=== PATIENT | female | born 1980 | race Caucasian/White ===

== ENCOUNTER 2019-02-19 07:32 | Observation (INO) | payer OTHER ==
[2019-02-19] MEDS ORDERED: NITROGLYCERIN OINT 1 INCH/GM PACKET TOPICAL STA (07:54)
[2019-02-19] MEDS ORDERED: ASPIRIN 81 MG PO STA (07:54)
--- NOTE | 2019-02-19 07:56 | ED ---
General Adult HPI - General Chief complaint: Chest Pain Stated complaint: High BP & chest pain Time Seen by Provider: 02/19/19 07:38 Source: patient, family, RN notes reviewed Mode of arrival: ambulatory Limitations: no limitations - History of Present Illness Initial comments: Patient is a pleasant 38-year-old female presenting to the emergency Department with chest discomfort. Symptoms started a couple of days ago. Patient has noticed her blood pressure has been high ascending at home. Blood pressure today was 180/88. Patient has been off her labetalol for the past year secondary to insurance reasons. Patient tried to call the doctor's office however there is no longer a doctor there. Patient states chest discomfort feels like pressure. Patient has diabetes and blood sugar has been running around 250. Patient does have some associated dyspnea. No radiation. Patient had mild nausea this morning. No diaphoresis. Patient has been under some increased stress recently. Patient does also have history of asthma with somewhat similar symptoms. - Related Data Home Medications Medication Instructions Recorded Confirmed Insulin Glargine [Lantus] 80 unit SQ HS 01/28/15 11/22/18 Insulin Glulisine [Apidra] See Protocol SQ AC-TID 06/23/15 11/22/18 Aspirin EC [Ecotrin Low Dose] 81 mg PO DAILY 06/11/16 11/22/18 Garlic 1 tab PO DAILY 11/22/18 11/22/18 Shital Fe 1.5-30 1 tab PO DAILY@1815 11/22/18 11/22/18 Previous Rx's Medication Instructions Recorded Benzonatate [Tessalon Perles] 200 mg PO TID PRN #20 capsule 11/22/18 Famotidine [Pepcid] 20 mg PO DAILY #20 tablet 11/22/18 Ibuprofen [Motrin] 600 mg PO Q6HR PRN #20 tab 11/22/18 predniSONE [Deltasone] 40 mg PO DAILY 5 Days #10 tablet 11/22/18 Allergies Allergy/AdvReac Type Severity Reaction Status Date / Time azithromycin Allergy Unknown Verified 02/19/19 07:37 brompheniramine maleate Allergy Unknown Verified 02/19/19 07:37 [From Dimetapp Cold-Allergy (PE)] cephalexin [From Keflex] Allergy Unknown Verified 02/19/19 07:37 Penicillins Allergy Unknown Verified 02/19/19 07:37 phenylephrine HCl Allergy Unknown Verified 11/22/18 20:02 [From Dimetapp Cold-Allergy (PE)] sulfamethoxazole Allergy Unknown Verified 02/19/19 07:37 [From Septra] tetracycline Allergy Unknown Verified 02/19/19 07:37 theophylline anhydrous Allergy Unknown Verified 02/19/19 07:37 [From Wenceslao-Dur] trimethoprim [From ] Allergy Unknown Verified 02/19/19 07:37 Review of Systems ROS Statement: Those systems with pertinent positive or pertinent negative responses have been documented in the HPI. ROS Other: All systems not noted in ROS Statement are negative. Constitutional: Denies: fever Eyes: Denies: eye pain ENT: Denies: ear pain Respiratory: Reports: dyspnea Cardiovascular: Reports: chest pain Endocrine: Denies: fatigue Gastrointestinal: Denies: abdominal pain Genitourinary: Denies: dysuria Musculoskeletal: Denies: back pain Skin: Denies: rash Neurological: Denies: weakness Past Medical History Past Medical History: Asthma, Diabetes Mellitus, Hypertension History of Any Multi-Drug Resistant Organisms: None Reported Past Surgical History: Section Past Psychological History: No Psychological Hx Reported Smoking Status: Never smoker Past Alcohol Use History: None Reported Past Drug Use History: None Reported General Exam Limitations: no limitations General appearance: alert, in no apparent distress Head exam: Present: normocephalic Eye exam: Present: normal appearance, PERRL ENT exam: Present: normal oropharynx Neck exam: Present: normal inspection Respiratory exam: Present: normal lung sounds bilaterally. Absent: chest wall tenderness Cardiovascular Exam: Present: regular rate, normal rhythm Expanded Peripheral pulses: 2+: Radial (R), Radial (L), Dorsalis Pedis (R), Dorsalis Pedis (L) GI/Abdominal exam: Present: soft. Absent: distended, tenderness Extremities exam: Present: normal inspection. Absent: pedal edema, calf tenderness Neurological exam: Present: alert Psychiatric exam: Present: normal affect, normal mood Skin exam: Present: normal color Course Vital Signs 02/19/19 02/19/19 07:34 08:33 Temperature 98 F Pulse Rate 94 86 Respiratory 20 16 Rate Blood Pressure 199/103 153/78 O2 Sat by Pulse 100 98 Oximetry EKG Findings - EKG Comments: EKG Findings:: No sinus rhythm 81. KS 186. QRS 82. QT 370. QTc 429. Left axis. Normal QRS. No acute ST change. Medical Decision Making - Medical Decision Making Patient reevaluated and resting comfortably in bed. Patient and family updated on results and plan. [facility] has been paged for hospital admission. D-dimer did come back somewhat elevated and CT A chest has been ordered. - Lab Data Result diagrams: 02/19/19 08:20 02/19/19 08:20 Lab Results 02/19/19 02/19/19 02/19/19 Range/Units 08:20 08:20 08:20 WBC 6.6 (3.8-10.6) k/uL RBC 5.60 H (3.80-5.40) m/uL Hgb 15.1 (11.4-16.0) gm/dL Hct 44.3 (34.0-46.0) % MCV 79.2 L (80.0-100.0) fL MCH 26.9 (25.0-35.0) pg MCHC 34.0 (31.0-37.0) g/dL RDW 14.3 (11.5-15.5) % Plt Count 214 (150-450) k/uL Neutrophils % 61 % Lymphocytes % 31 % Monocytes % 4 % Eosinophils % 3 % Basophils % 1 % Neutrophils # 4.0 (1.3-7.7) k/uL Lymphocytes # 2.0 (1.0-4.8) k/uL Monocytes # 0.3 (0-1.0) k/uL Eosinophils # 0.2 (0-0.7) k/uL Basophils # 0.0 (0-0.2) k/uL PT 9.4 (9.0-12.0) sec INR 0.9 (<1.2) APTT 21.1 L (22.0-30.0) sec D-Dimer 0.82 H (<0.60) mg/L FEU Sodium 136 L (137-145) mmol/L Potassium 4.1 (3.5-5.1) mmol/L Chloride 104 (98-107) mmol/L Carbon Dioxide 24 (22-30) mmol/L Anion Gap 8 mmol/L BUN 13 (7-17) mg/dL Creatinine 0.55 (0.52-1.04) mg/dL Est GFR (CKD-EPI)AfAm >90 (>60 ml/min/1.73 sqM) Est GFR (CKD-EPI)NonAf >90 (>60 ml/min/1.73 sqM) Glucose 198 H (74-99) mg/dL Calcium 9.3 (8.4-10.2) mg/dL Magnesium 1.5 L (1.6-2.3) mg/dL Total Bilirubin 0.3 (0.2-1.3) mg/dL AST 21 (14-36) U/L ALT 20 (9-52) U/L Alkaline Phosphatase 74 (38-126) U/L Troponin I (0.000-0.034) ng/mL NT-Pro-B Natriuret Pep pg/mL Total Protein 6.5 (6.3-8.2) g/dL Albumin 3.5 (3.5-5.0) g/dL Amylase 35 (30-110) U/L Lipase 80 (23-300) U/L 02/19/19 02/19/19 Range/Units 08:20 08:20 WBC (3.8-10.6) k/uL RBC (3.80-5.40) m/uL Hgb (11.4-16.0) gm/dL Hct (34.0-46.0) % MCV (80.0-100.0) fL MCH (25.0-35.0) pg MCHC (31.0-37.0) g/dL RDW (11.5-15.5) % Plt Count (150-450) k/uL Neutrophils % % Lymphocytes % % Monocytes % % Eosinophils % % Basophils % % Neutrophils # (1.3-7.7) k/uL Lymphocytes # (1.0-4.8) k/uL Monocytes # (0-1.0) k/uL Eosinophils # (0-0.7) k/uL Basophils # (0-0.2) k/uL PT (9.0-12.0) sec INR (<1.2) APTT (22.0-30.0) sec D-Dimer (<0.60) mg/L FEU Sodium (137-145) mmol/L Potassium (3.5-5.1) mmol/L Chloride (98-107) mmol/L Carbon Dioxide (22-30) mmol/L Anion Gap mmol/L BUN (7-17) mg/dL Creatinine (0.52-1.04) mg/dL Est GFR (CKD-EPI)AfAm (>60 ml/min/1.73 sqM) Est GFR (CKD-EPI)NonAf (>60 ml/min/1.73 sqM) Glucose (74-99) mg/dL Calcium (8.4-10.2) mg/dL Magnesium (1.6-2.3) mg/dL Total Bilirubin (0.2-1.3) mg/dL AST (14-36) U/L ALT (9-52) U/L Alkaline Phosphatase (38-126) U/L Troponin I <0.012 (0.000-0.034) ng/mL NT-Pro-B Natriuret Pep 40 pg/mL Total Protein (6.3-8.2) g/dL Albumin (3.5-5.0) g/dL Amylase (30-110) U/L Lipase (23-300) U/L - Radiology Data Radiology results: image reviewed (Chest x-ray reveals no acute process) Disposition Clinical Impression: Chest pain Disposition: ADMITTED IP TO THIS HOSP Is patient prescribed a controlled substance at d/c from ED?: No Referrals: None,Stated [Primary Care Provider] - 1-2 days Decision Time: 09:26
[2019-02-19 08:31] LABS: Basophils % (A) 1 %; Eosinophils # (A) 0.2 k/uL (0-0.7); Eosinophils % (A) 3 %; HCT 44.3 % (34.0-46.0); HGB 15.1 gm/dL (11.4-16.0); Lymphocytes % (A) 31 %; MCH 26.9 pg (25.0-35.0); MCV 79.2 fL (80.0-100.0); Mean Platelet Volume 7.8; Monocytes # (A) 0.3 k/uL (0-1.0); Monocytes % (A) 4 %; Neutrophils % (A) 61 %; Platelet Count 214 k/uL (150-450); RDW 14.3 % (11.5-15.5); WBC 6.6 k/uL (3.8-10.6)
[2019-02-19 08:43] LABS: ALT 20 U/L (9-52); AST 21 U/L (14-36); African American GFR (CKD) >90 (>60 ml/min/1.73 sqM); Albumin 3.5 g/dL (3.5-5.0); Alkaline Phosphatase 74 U/L (38-126); Amylase 35 U/L (30-110); Anion Gap 8 mmol/L; Blood Urea Nitrogen 13 mg/dL (7-17); Calcium 9.3 mg/dL (8.4-10.2); Carbon Dioxide 24 mmol/L (22-30); Chloride 104 mmol/L (98-107); Glucose 198 mg/dL (74-99); Lipase 80 U/L (23-300); Magnesium 1.5 mg/dL (1.6-2.3); Potassium 4.1 mmol/L (3.5-5.1); Sodium 136 mmol/L (137-145); Total Bilirubin 0.3 mg/dL (0.2-1.3); Total Protein 6.5 g/dL (6.3-8.2)
[2019-02-19 08:50] LABS: INR 0.9 (<1.2); Prothrombin Time 9.4 sec (9.0-12.0)
--- NOTE | 2019-02-19 08:53 | XR ---
EXAMINATION TYPE: XR chest 2V DATE OF EXAM: 02/19/2019 COMPARISON: Prior chest x-ray 11/22/2018 HISTORY: Chest pain, hypertension TECHNIQUE: Frontal and lateral views of the chest are obtained. FINDINGS: There is no focal air space opacity, pleural effusion, or pneumothorax seen. The cardiac silhouette size is within normal limits. The osseous structures are intact. There are overlying car diac leads. IMPRESSION: No acute cardiopulmonary process.
[2019-02-19] MEDS ORDERED: MAGNESIUM OXIDE 400 MG TAB PO STA (09:09)
[2019-02-19 09:22] LABS: D-Dimer 0.82 mg/L FEU (<0.60); Partial Thromboplastin Time 21.1 sec (22.0-30.0)
[2019-02-19] MEDS ORDERED: NITROGLYCERIN SL TABS 0.4 MG TAB SUBLINGUAL PRN (09:27)
--- NOTE | 2019-02-19 10:04 | CT ---
EXAMINATION TYPE: CT angio chest DATE OF EXAM: 02/19/2019 COMPARISON: Chest x-ray same date and prior chest CT 08/10/2011 HISTORY: Elevated BP, chest pain, SOB CT DLP: 1006.7 mGycm Automated exposure control for dose reduction was used. CONTRAST: CTA scan of the thorax is performed with IV Contrast, patient injected with 53 mL of Isovue 370, pulm onary embolism protocol. MIP images are created and reviewed. 3D reconstructed images are created o n an independent workstation and reviewed. FINDINGS: LUNGS: The lungs are grossly clear, there is no concerning parenchymal mass or nodule identified. T here is no pleural effusion or pneumothorax seen. The tracheobronchial tree is patent. AORTA: No additional significant abnormality is seen. MEDIASTINUM: There is satisfactory enhancement of the pulmonary artery and its branches, there is no CT evidence for pulmonary embolism. There are no greater than 1 cm hilar or mediastinal lymph nodes. No pericardial effusion is seen. OTHER: Liver shows low attenuation likely due to hepatic steatosis. IMPRESSION: NO EVIDENT PULMONARY EMBOLUS.
[2019-02-19 10:07] VITALS: BMI 52.4
[2019-02-19 11:43] LABS: Glucose,Whole Blood 154 mg/dL (75-99)
[2019-02-19] MEDS ORDERED: NITROGLYCERIN OINT 1 INCH/GM PACKET TOPICAL SCH (12:00)
[2019-02-19] MEDS: PANTOPRAZOLE 40 MG TABLET PO SCH (12:44)
--- NOTE | 2019-02-19 13:08 | P.CRDCN ---
History of Present Illness History of present illness: This is a pleasant 38-year-old female past medical history significant for hypertension, diabetes mellitus, asthma and morbid obesity. 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 We have been asked to see her in consultation for chest pain. She states for the previous couple of days she has noticed a tightness in her chest associated with breathing. She feels she's been mildly short of breath and possibly wheezing at home. She has been taking breathing treatments with no real relief of her symptoms. The tightness in her chest is worse when she takes in a deep breath. She also describes a burning sensation in the epigastric region that has been off-and-on for the previous few weeks. The discomfort is reproducible on palpation. She denies palpitations, nausea, vomiting or diaphoresis. She also has a diagnosis of hypertension however has not been taking her prescribed labetalol for the last year since she lost her medical insurance. She states she initially was started on labetalol when she was and had preeclampsia. She is seen and examined resting comfortably in bed in no acute distress. EKG reveals sinus mechanism with no acute ST or T-wave abnormalities noted. Chest xray negative for an acute cardiopulmonary process. CTA chest negative for PE. Laboratory data reviewed, WBC 6.6, hgb 15.1, plt 214, d-dimer 0.82, sodium 136, potassium 4.1, creatinine 0.55, magnesium 1.5, proBNP 40, cardiac enzymes negative x1. Current cardiac medications include aspirin 81 mg daily. At the time of my exam: CONSTITUTIONAL: Denies fever. Denies chills. EYES: Denies blurred vision. Denies vision changes. Denies eye pain. EARS, NOSE, MOUTH & THROAT: Denies headache. Denies sore throat. Denies ear pain. CARDIOVASCULAR: Denies chest pain. Denies shortness of breath. Denies orthopnea. Denies PND. Denies palpitations. RESPIRATORY: Denies cough. GASTROINTESTINAL: Denies abdominal pain. Denies diarrhea. Denies constipation. Denies nausea. Denies vomiting. MUSCULOSKELETAL: Denies myalgias. INTEGUMENTARY: Denies pruitis. Denies rash. NEUROLOGIC: Denies numbness. Denies tingling. Denies weakness. PSYCHIATRIC: Denies anxiety. Denies depression. ENDOCRINE: Denies fatigue. Denies weight change. Denies polydipsia. Denies polyurina. GENITOURINARY: Denies burning, hematuria or urgency with micturation. HEMATOLOGIC: Denies history of anemia. Denies bleeding. Blood pressure 131/84 heart rate 93 afebrile maintaining oxygen saturation on room air GENERAL: This is a 38-year-old female in no apparent distress at the time of my examination. Morbidly obese. HEENT: Head is atraumatic, normocephalic. Pupils are equal, round. Sclerae anicteric. Conjunctivae are clear. Mucous membranes of the mouth are moist. Neck is supple. There is no jugular venous distention. No carotid bruit is heard. LUNGS: Clear to auscultation no wheezes, rales or rhonchi. No chest wall tenderness is noted on palpation or with deep breathing. HEART: Regular rate and rhythm without murmurs, rubs or gallops. S1 and S2 heard. ABDOMEN: Soft, nontender. Bowel sounds are heard. No organomegaly noted. EXTREMITIES: No evidence of peripheral edema and no calf tenderness noted. VASCULAR: Radial and dorsalis pedis pulses palpated, no evidence of clubbing. NEUROLOGIC: Patient is awake, alert and oriented x3. ASSESSMENT Chest pain, atypical for angina with elements of worsening with deep inspiration. Epigastric burning, worse on palpation Hypertension, uncontrolled Diabetes mellitus Asthma Morbid obesity, BMI 52 Family history of premature coronary artery disease with mother having stent placement in her 50s PLAN Chest discomfort is very atypical for angina with pleuritic features most likely related to underlying exacerbation of asthma or upper respiratory type illness. Initiate on lisinopril 5 mg daily along with atorvastatin 40 mg daily for cardioprotective purposes secondary to diabetes mellitus. Obtain 2-D echocardiogram and Doppler study to assess cardiac structure and function. Ongoing medical management. Follow-up with Dr. Arias as an outpatient for outpatient stress testing once u pper respiratory illness has resolved. Lifestyle modifications are recommended for weight loss to include diet and exercise. Thank you kindly for this consultation. Nurse Practitioner note has been reviewed, I agree with a documented findings and plan of care. Patient was seen and examined. Past Medical History Past Medical History: Asthma, Diabetes Mellitus, Hypertension Additional Past Medical History / Comment(s): IDDM type II History of Any Multi-Drug Resistant Organisms: None Reported Past Surgical History: Section Additional Past Surgical History / Comment(s): x 3 Past Anesthesia/Blood Transfusion Reactions: No Reported Reaction Smoking Status: Never smoker - Past Family History Father History Unknown: Yes Mother Family Medical History: Myocardial Infarction (CT) Additional Family Medical History / Comment(s): Mother had a CT at the age of 52 yrs. She has Grave's disease Medications and Allergies Home Medications Medication Instructions Recorded Confirmed Type Aspirin EC [Ecotrin Low Dose] 81 mg PO DAILY 06/11/16 02/19/19 History Shital Fe 1.5-30 1 tab PO DAILY@1815 11/22/18 02/19/19 History Famotidine [Pepcid] 20 mg PO HS 02/19/19 02/19/19 History INSULIN LISPRO (humaLOG) [humaLOG] 40 - 60 units SQ AC-TID 02/19/19 02/19/19 History Insulin Detemir (Levemir) [Levemir] 80 unit SQ HS 02/19/19 02/19/19 History Allergies Allergy/AdvReac Type Severity Reaction Status Date / Time azithromycin Allergy Unknown Verified 02/19/19 09:29 brompheniramine maleate Allergy Unknown Verified 02/19/19 09:29 [From Dimetapp Cold-Allergy (PE)] cephalexin [From Keflex] Allergy Unknown Verified 02/19/19 09:29 Penicillins Allergy Unknown Verified 02/19/19 09:29 phenylephrine HCl Allergy Unknown Verified 02/19/19 09:29 [From Dimetapp Cold-Allergy (PE)] sulfamethoxazole Allergy Unknown Verified 02/19/19 09:29 [From Septra] tetracycline Allergy Unknown Verified 02/19/19 09:29 theophylline anhydrous Allergy Unknown Verified 02/19/19 09:29 [From Wenceslao-Dur] trimethoprim [From Septra] Allergy Unknown Verified 02/19/19 09:29 Physical Exam Vitals: Vital Signs Temp Pulse Pulse Resp BP BP Pulse Ox 02/19/19 10:33 98.2 F 93 18 131/84 97 02/19/19 09:59 98.5 F 88 16 151/84 96 02/19/19 08:33 86 16 153/78 98 02/19/19 07:34 98 F 94 20 199/103 100 Intake and Output 02/18/19 02/19/19 02/19/19 22:59 06:59 14:59 Other: Weight 147.418 kg Results 02/19/19 08:20 02/19/19 08:20 Cardiac Enzymes 02/19/19 02/19/19 Range/Units 08:20 08:20 AST 21 (14-36) U/L Troponin I <0.012 (0.000-0.034) ng/mL Coagulation 02/19/19 Range/Units 08:20 PT 9.4 (9.0-12.0) sec APTT 21.1 L (22.0-30.0) sec CBC 02/19/19 Range/Units 08:20 WBC 6.6 (3.8-10.6) k/uL RBC 5.60 H (3.80-5.40) m/uL Hgb 15.1 (11.4-16.0) gm/dL Hct 44.3 (34.0-46.0) % Plt Count 214 (150-450) k/uL Comprehensive Metabolic Panel 02/19/19 Range/Units 08:20 Sodium 136 L (137-145) mmol/L Potassium 4.1 (3.5-5.1) mmol/L Chloride 104 (98-107) mmol/L Carbon Dioxide 24 (22-30) mmol/L BUN 13 (7-17) mg/dL Creatinine 0.55 (0.52-1.04) mg/dL Glucose 198 H (74-99) mg/dL Calcium 9.3 (8.4-10.2) mg/dL AST 21 (14-36) U/L ALT 20 (9-52) U/L Alkaline Phosphatase 74 (38-126) U/L Total Protein 6.5 (6.3-8.2) g/dL Albumin 3.5 (3.5-5.0) g/dL Current Medications Generic Name Dose Route Start Last Admin Trade Name Freq PRN Reason Stop Dose Admin Aspirin 325 mg 02/20/19 09:00 Aspirin PO DAILY JANETH Nitroglycerin 1 inch 02/19/19 12:00 02/19/19 12:04 Nitro-Bid Oint TOPICAL Not Given Q6HR JANETH Nitroglycerin 0.4 mg 02/19/19 09:27 Nitrostat SUBLINGUAL Q5M PRN Chest Pain Sodium Chloride 10 ml 02/19/19 21:00 Saline Flush IV BID JANETH Intake and Output 06/20/19 06/21/19 06/21/19 22:59 06:59 14:59 Other: Weight 147.418 kg Patient Weight 02/20/19 06:59 Weight 147.418 kg 02/19/19 08:20 02/19/19 08:20
[2019-02-19 13:46] LABS: Cholesterol 212 mg/dL (<200); HDL Cholesterol 44 mg/dL (40-60); LDL Cholesterol,Calculated 124 mg/dL (0-99); Triglycerides 222 mg/dL (<150)
[2019-02-19] MEDS: LISINOPRIL 5 MG TAB PO SCH (14:17)
[2019-02-19] MEDS: ATORVASTATIN 40 MG TAB PO SCH (14:17)
[2019-02-19 16:58] LABS: Glucose,Whole Blood 221 mg/dL (75-99)
[2019-02-19] MEDS ORDERED: ALBUTEROL NEBULIZED 2.5 MG/3 ML INHALATION PRN (17:10)
--- NOTE | 2019-02-19 17:12 | P.HPIM ---
History of Present Illness H&P Date: 02/19/19 Chief Complaint: Chest pain 30-year-old female with PMH of diabetes mellitus, hypertension presents to the ED for chest tightness and shortness of breath. Patient reports that the chest pain started a few days ago. Patient describes the pain as pressure-like in sensation. She is unable to describe severity level due to it not being a pain. Patient states that she thought that this was an asthma attack and she tried to use an albuterol inhaler and a nebulizer treatment which improved her symptoms. Over the next few days she got repeat episodes of chest pressure, which prompted her to come to the ED. Patient also reports wheezing with her breathing. Patient states that the tightness in her chest is worse with deep inhalation. Patient also complains of epigastric discomfort over the last couple of days. Of note, patient has not been treating her hypertension, labetalol which was prescribed to her after her last due to preeclampsia as she has lost her medical insurance. She denies any headache, lower extremity edema, nausea, vomiting, fever, cough, palpitations, changes in urination or bowel habits. No changes in appetite or weight. No dizziness, numbness/weakness/tingling of the extremities. In the ED, vital signs are stable except for a BP of 199/103. CBC was unremarkable. Coagulation panel was negative. D-dimer slightly elevated. CMP was negative. Initial troponin was less than 0.012, EKG showing normal sinus rhythm. CT of the chest ruled out PE. Chest x-ray was negative. Lipid panel shows an elevated triglyceride of 222, total cholesterol 212 and LDL 124. Patient is admitted for chest pain, rule out acute coronary syndrome. Review of Systems Pertinent positives and negatives as discussed in HPI, a complete review of systems was performed and all other systems are negative. Past Medical History Past Medical History: Asthma, Diabetes Mellitus, Hypertension Additional Past Medical History / Comment(s): IDDM type II History of Any Multi-Drug Resistant Organisms: None Reported Past Surgical History: Section Additional Past Surgical History / Comment(s): x 3 Past Anesthesia/Blood Transfusion Reactions: No Reported Reaction Smoking Status: Never smoker - Past Family History Father History Unknown: Yes Mother Family Medical History: Myocardial Infarction (MO) Additional Family Medical History / Comment(s): Mother had a MO at the age of 52 yrs. She has Grave's disease Medications and Allergies Home Medications Medication Instructions Recorded Confirmed Type Aspirin EC [Ecotrin Low Dose] 81 mg PO DAILY 06/11/16 02/19/19 History Shital Fe 1.5-30 1 tab PO DAILY@1815 11/22/18 02/19/19 History Famotidine [Pepcid] 20 mg PO HS 02/19/19 02/19/19 History INSULIN LISPRO (humaLOG) [humaLOG] 40 - 60 units SQ AC-TID 02/19/19 02/19/19 History Insulin Detemir (Levemir) [Levemir] 80 unit SQ HS 02/19/19 02/19/19 History Allergies Allergy/AdvReac Type Severity Reaction Status Date / Time azithromycin Allergy Unknown Verified 02/19/19 09:29 brompheniramine maleate Allergy Unknown Verified 02/19/19 09:29 [From Dimetapp Cold-Allergy (PE)] cephalexin [From Keflex] Allergy Unknown Verified 02/19/19 09:29 Penicillins Allergy Unknown Verified 02/19/19 09:29 phenylephrine HCl Allergy Unknown Verified 02/19/19 09:29 [From Dimetapp Cold-Allergy (PE)] sulfamethoxazole Allergy Unknown Verified 02/19/19 09:29 [From Septra] tetracycline Allergy Unknown Verified 02/19/19 09:29 theophylline anhydrous Allergy Unknown Verified 02/19/19 09:29 [From [place]-Dur] trimethoprim [From ] Allergy Unknown Verified 02/19/19 09:29 Physical Exam Vitals: Vital Signs Temp Pulse Pulse Resp BP BP Pulse Ox 02/19/19 15:33 98.6 F 94 18 101/66 96 02/19/19 10:33 98.2 F 93 18 131/84 97 02/19/19 09:59 98.5 F 88 16 151/84 96 02/19/19 08:33 86 16 153/78 98 02/19/19 07:34 98 F 94 20 199/103 100 Intake and Output 02/19/19 02/19/19 02/19/19 06:59 14:59 22:59 Other: Weight 147.418 kg General: [non toxic], [no distress], [appears at stated age], [morbid obesity] Derm: [warm], [dry] Head: [atraumatic], [normocephalic], [symmetric] Eyes: [EOMI], [no lid lag], [anicteric sclera] Mouth: [no lip lesion], [mucus membranes moist] Cardiovascular: [S1S2 reg], [no murmur], [positive DP pulse bilateral], Lungs: [Decreased breath sounds bilateral], [no rhonchi, no rales] , [no accessory muscle use] Abdominal: [soft], [ nontender to palpation], [no guarding], [no appreciable organomegaly] Ext: [no gross muscle atrophy], [no edema], [no contractures] Neuro: [no focal neuro deficits] Psych: [Alert], [oriented], [appropriate affect] Results CBC & Chem 7: 02/19/19 08:20 02/19/19 08:20 Labs: Abnormal Lab Results - Last 24 Hours (Table) 02/19/19 02/19/19 02/19/19 Range/Units 08:20 08:20 08:20 RBC 5.60 H (3.80-5.40) m/uL MCV 79.2 L (80.0-100.0) fL APTT 21.1 L (22.0-30.0) sec D-Dimer 0.82 H (<0.60) mg/L FEU Sodium 136 L (137-145) mmol/L Glucose 198 H (74-99) mg/dL POC Glucose (mg/dL) (75-99) mg/dL Magnesium 1.5 L (1.6-2.3) mg/dL Triglycerides (<150) mg/dL Cholesterol (<200) mg/dL LDL Cholesterol, Calc (0-99) mg/dL 02/19/19 02/19/19 Range/Units 08:24 11:41 RBC (3.80-5.40) m/uL MCV (80.0-100.0) fL APTT (22.0-30.0) sec D-Dimer (<0.60) mg/L FEU Sodium (137-145) mmol/L Glucose (74-99) mg/dL POC Glucose (mg/dL) 154 H (75-99) mg/dL Magnesium (1.6-2.3) mg/dL Triglycerides 222 H (<150) mg/dL Cholesterol 212 H (<200) mg/dL LDL Cholesterol, Calc 124 H (0-99) mg/dL Thrombosis Risk Factor Assmnt - Choose All That Apply Any of the Below Risk Factors Present?: Yes Each Factor Represents 1 point: Obesity (BMI >25) Other Risk Factors: No Other congenital or acquired thrombophilia - If yes, enter type in comment: No Thrombosis Risk Factor Assessment Total Risk Factor Score: 1 Thrombosis Risk Factor Assessment Level: Low Risk Assessment and Plan Assessment: Assessment and Plan Chest pain Asthma Hypertension Diabetes mellitus Hyperlipidemia Chest tightness is likely secondary to asthma. Patient does have some epigastric discomfort, likely related to GERD or gastritis. Troponin was less than 0.0122 with EKG showing normal sinus rhythm. Chest x-ray is negative. D- dimer elevated but CTA chest rules out PE. Plans: ACS is ruled out. Cardiology is consulted, recommends echocardiogram. Telemetry monitoring. Ensure adequate pain management. Continue aspirin and Lipitor. Protonix for possible GERD. Stable. Plans: Albuterol nebulizer 4 times a day as needed for shortness of breath or wheezing. BP 101/66. Plans: Continue lisinopril. Monitor vitals, adjust medications as necessary. [id number] glucose 221. Plans: Insulin sliding scale. Continue Lantus 40 units at bedtime. Regular Accu-Cheks. Hypoglycemic precautions. Diabetic diet. Lipitor shows elevated triglycerides 222, total cholesterol 212, LDL 124. Plans: Continue Lipitor. Patient admitted for chest pain, rule out acute coronary syndrome. ACS is ruled out. Cardiology is consulted, recommends echocardiogram. The read of echocardiogram is pending. Likely DC tomorrow morning.
[2019-02-19] MEDS: INSULIN ASPART (NovoLOG) 100 UNIT/ML VIAL SQ SCH (17:44)
[2019-02-19] MEDS: ACETAMINOPHEN TAB 325 MG TAB PO PRN (18:26)
--- NOTE | 2019-02-19 19:20 | ECHOF ---
Referral Reason:cp MEASUREMENTS -------- HEIGHT: 167.6 cm WEIGHT: 147.4 kg BP: 131/84 IVSd: 1.1 cm (0.6 - 1.1) LVIDd: 4.3 cm (3.9 - 5.3) LVPWd: 1.1 cm (0.6 - 1.1) IVSs: 1.4 cm LVIDs: 2.9 cm LVPWs: 1.4 cm LA Diam: 3.5 cm (2.7 - 3.8) LAESV Index (A-L): 19.63 ml/m MV E Paul: 0.69 m/s MV DecT: 225 ms MV A Paul: 0.92 m/s MV E/A Ratio: 0.74 AV maxP.61 mmHg AV meanP.40 mmHg FINDINGS -------- Sinus rhythm. This was a technically adequate study. LV size, wall thickness and systolic function are normal, with an EF greater than 55%. The right ventricle is normal in size. Normal LA size by volume 22+/-6 ml/m2. The right atrial size is normal. 5.0mg of Lumason was utilized for enhancement of images The aortic valve is trileaflet, and appears structurally normal. No aortic stenosis or regurgitation. The mitral valve is normal. The tricuspid valve appears structurally normal. The pulmonic valve was not well visualized. There is no pulmonic regurgitation present. The aortic root, ascending aorta and aortic arch are normal. Normal inferior vena cava with normal inspiratory collapse consistent with estimated right atrial pre ssure of 5 mmHg. There is no pericardial effusion. CONCLUSIONS -------- 1. Sinus rhythm. 2. This was a technically adequate study. 3. LV size, wall thickness and systolic function are normal, with an EF greater than 55%. 4. Normal LA size by volume 22+/-6 ml/m2. 5. 5.0mg of Lumason was utilized for enhancement of images 6. The aortic valve is trileaflet, and appears structurally normal. No aortic stenosis or regurgitati on. 7. The mitral valve is normal. 8. The tricuspid valve appears structurally normal. 9. There is no pulmonic regurgitation present. 10. Normal inferior vena cava with normal inspiratory collapse consistent with estimated right atrial pressure of 5 mmHg. 11. There is no pericardial effusion. FINANCIAL OPERATIONS ANALYST: Elsa King RDCS
[2019-02-19 20:16] LABS: Glucose,Whole Blood 261 mg/dL (75-99)
[2019-02-19] MEDS ORDERED: INSULIN DETEMIR (LEVEMIR) 100 UNIT/ML SYR SQ SCH ×2 (21:00)
[2019-02-19] MEDS ORDERED: FAMOTIDINE 20 MG TAB PO SCH (21:00)
[2019-02-20 06:37] LABS: Glucose,Whole Blood 196 mg/dL (75-99)
[2019-02-20 07:17] VITALS: BP 108/73; PULSE 82; RESP 18; TEMP 98.5
[2019-02-20] MEDS ORDERED: methylPREDNISolone SOD SUCCI 125 MG/2 ML VIAL IV STA (08:00)
--- NOTE | 2019-02-20 08:15 | P.DS ---
Providers Date of admission: 02/19/19 09:27 Expected date of discharge: 02/20/19 Attending physician: Judie Oshea DO Consults: 02/19/19 09:27 Consult Physician Urgent Consulting Provider: Josias Douglas Consult Reason/Comments: cp Do you want consulting provider notified?: Yes Primary care physician: Stated None Hospital Course: 30-year-old female with PMH of diabetes mellitus, hypertension presents to the ED for chest tightness and shortness of breath. Patient reports that the chest pain started a few days ago. Patient describes the pain as pressure-like in sensation. She is unable to describe severity level due to it not being a pain. Patient states that she thought that this was an asthma attack and she tried to use an albuterol inhaler and a nebulizer treatment which improved her symptoms. Over the next few days she got repeat episodes of chest pressure, which prompted her to come to the ED. Patient also reports wheezing with her breathing. Patient states that the tightness in her chest is worse with deep inhalation. Patient also complains of epigastric discomfort over the last couple of days. Of note, patient has not been treating her hypertension, labetalol which was prescribed to her after her last due to preeclampsia as she has lost her medical insurance. She denies any headache, lower extremity edema, nausea, vomiting, fever, cough, palpitations, changes in urination or bowel habits. No changes in appetite or weight. No dizziness, numbness/weakness/tingling of the extremities. In the ED, vital signs are stable except for a BP of 199/103. CBC was unremarkable. Coagulation panel was negative. D-dimer slightly elevated. CMP was negative. Initial troponin was less than 0.012, EKG showing normal sinus rhythm. CT of the chest ruled out PE. Chest x-ray was negative. Lipid panel shows an elevated triglyceride of 222, total cholesterol 212 and LDL 124. Patient is admitted for chest pain, rule out acute coronary syndrome. Her chest tightness was likely secondary to asthma. Patient did have some epigastric discomfort likely related to GERD or gastritis. Troponin was less than 0.0123 with EKG showing normal sinus rhythm. Chest x-ray was negative. D-dimer was elevated up with CT of the chest ruled out PE. Acute coronary syndrome was ruled out. Cardiology was consulted and recommended echocardiogram. Echocardiogram showed EF greater than 50% with no wall motion abnormalities. Patient was continued on aspirin and Lipitor. She was given Protonix for possible GERD. Otherwise, her home medications were resumed for asthma, hypertension, diabetes mellitus and hyperlipidemia. Patient was seen and examined. No acute events overnight. Patient complains of mild chest tightness and difficulty breathing this morning. She denies any chest pain, or palpitations. No nausea or vomiting. No fever or chills. General: [non toxic], [no distress], [appears at stated age], [morbid obesity] Derm: [warm], [dry] Head: [atraumatic], [normocephalic], [symmetric] Eyes: [EOMI], [no lid lag], [anicteric sclera] Mouth: [no lip lesion], [mucus membranes moist] Cardiovascular: [S1S2 reg], [no murmur], [positive DP pulse bilateral], Lungs: [Decreased breath sounds bilateral], [no rhonchi, no rales] , [no accessory muscle use] Abdominal: [soft], [ nontender to palpation], [no guarding], [no appreciable organomegaly] Ext: [no gross muscle atrophy], [no edema], [no contractures] Neuro: [no focal neuro deficits] Psych: [Alert], [oriented], [appropriate affect] Assessment and Plan Chest pain Asthma Hypertension Diabetes mellitus Hyperlipidemia Chest tightness is likely secondary to asthma. Patient does have some epigastric discomfort, likely related to GERD or gastritis. Troponin was less than 0.0123 with EKG showing normal sinus rhythm. Echocardiogram showed EF greater than 55% with no wall motion abnormalities. Chest x-ray is negative. D- dimer elevated but CTA chest rules out PE. Plans: ACS is ruled out. Cardiology is consulted, recommends echocardiogram. Telemetry monitoring. Ensure adequate pain management. Continue aspirin and Lipitor. Protonix for possible GERD. Stable. Plans: Albuterol nebulizer 4 times a day as needed for shortness of breath or wheezing. Solu-Medrol 125 mg IV 1 time dose, will DC with 4 day course of prednisone. BP 108/73. Plans: Continue lisinopril. Monitor vitals, adjust medications as necessary. [id number] glucose 196. Plans: Insulin sliding scale. Continue Lantus 40 units at bedtime. Regular Accu-Cheks. Hypoglycemic precautions. Diabetic diet. Lipitor shows elevated triglycerides 222, total cholesterol 212, LDL 124. Plans: Continue Lipitor. Patient admitted for chest pain, rule out acute coronary syndrome. ACS is ruled out. Cardiology is consulted, recommends echocardiogram. Echocardiogram within normal limits. Will DC today. Outpatient cardiology appointment. Pertinent Studies: Chest CTA, echocardiogram, chest x-ray Patient Condition at Discharge: Stable Plan - Discharge Summary Discharge Rx Participant: No New Discharge Prescriptions: New Atorvastatin [Lipitor] 40 mg PO DAILY #90 tab predniSONE 50 mg PO DAILY #4 tab Pantoprazole [Protonix] 40 mg PO AC-BRKFST #90 tablet. Lisinopril [Zestril] 5 mg PO DAILY #90 tab Continue Aspirin EC [Ecotrin Low Dose] 81 mg PO DAILY Shital Fe 1.5-30 1 tab PO DAILY@181 Insulin Detemir (Levemir) [Levemir] 80 unit SQ HS INSULIN LISPRO (humaLOG) [humaLOG] 40 - 60 units SQ AC-TID Discontinued Famotidine [Pepcid] 20 mg PO HS Discharge Medication List Aspirin EC [Ecotrin Low Dose] 81 mg PO DAILY 06/11/16 [History] Shital Fe 1.5-30 1 tab PO DAILY@1815 11/22/18 [History] INSULIN LISPRO (humaLOG) [humaLOG] 40 - 60 units SQ AC-TID 02/19/19 [History] Insulin Detemir (Levemir) [Levemir] 80 unit SQ HS 02/19/19 [History] Atorvastatin [Lipitor] 40 mg PO DAILY #90 tab 02/20/19 [Rx] Lisinopril [Zestril] 5 mg PO DAILY #90 tab 02/20/19 [Rx] Pantoprazole [Protonix] 40 mg PO AC-BRKFST #90 tablet. 02/20/19 [Rx] predniSONE 50 mg PO DAILY #4 tab 02/20/19 [Rx] Follow up Appointment(s)/Referral(s): Dariana Arias MD [STAFF PHYSICIAN] - 02/25/19 2:30 pm (follow up for outpatient stress test.) None,Stated [Primary Care Provider] - 1-2 days Patient Instructions/Handouts: Chest Pain (DC) Activity/Diet/Wound Care/Special Instructions: Diet: Diabetic Follow-up with PCP within 1-2 days of discharge. Follow-up with cardiology within 1 week of discharge. Discharge Disposition: HOME SELF-CARE
[2019-02-20] MEDS: INSULIN ASPART (NovoLOG) 100 UNIT/ML VIAL SQ SCH (08:26)
[2019-02-20] MEDS: ATORVASTATIN 40 MG TAB PO SCH (08:31)
[2019-02-20] MEDS: PANTOPRAZOLE 40 MG TABLET PO SCH (08:32)
[2019-02-20] MEDS: LISINOPRIL 5 MG TAB PO SCH (08:32)
[2019-02-20] MEDS ORDERED: ASPIRIN 325 MG TAB PO SCH (09:00)
[2019-02-20] MEDS: ACETAMINOPHEN TAB 325 MG TAB PO PRN (09:53)
== END 2019-02-20 10:31 | disposition home or self-care (01) ==
LOC: EC 07:32 → 1SOBS 09:27
PROVIDERS: ADMIT Internal Medicine; ATTEND Internal Medicine
DX: R07.89 Other chest pain (principal); E66.01 Morbid (severe) obesity due to excess calories; R10.13 Epigastric pain; E78.5 Hyperlipidemia, unspecified; Z68.43 Body mass index [BMI] 50.0-59.9, adult; E11.9 Type 2 diabetes mellitus without complications; I10 Essential (primary) hypertension; J45.909 Unspecified asthma, uncomplicated; Z79.82 Long term (current) use of aspirin; Z79.4 Long term (current) use of insulin; Z79.899 Other long term (current) drug therapy; Z88.1 Allergy status to other antibiotic agents; Z88.0 Allergy status to penicillin; Z88.2 Allergy status to sulfonamides; Z88.8 Allergy status to other drugs, medicaments and biological substances; Z82.49 Family history of ischemic heart disease and other diseases of the circulatory system
CPT/HCPCS: 96374; 99285; 36415; 94640; 93005; 85379; 83880; 80061; 80053; 82150; 83690; 83735 ×2; 84484; 85025; 85610; 85730; 71046; 71275; G0378 ×2; C8929; J2930; Q9950; Q9967; 93306

== ENCOUNTER 2019-04-25 19:01 | Emergency (ER) | payer OTHER ==
--- NOTE | 2019-04-25 19:52 | ED ---
Female Urogenital HPI - General Chief complaint: Vaginal Bleeding Stated complaint: Vaginal Bleeding Time Seen by Provider: 04/25/19 19:29 Source: patient Mode of arrival: ambulatory Limitations: no limitations - History of Present Illness Initial comments: Patient is a 39-year-old female presenting to the emergency Department with complaints of heavy vaginal bleeding 8 days. Patient states she is on control pills and usually has a very regular menstrual cycle. Patient states she is about a week early from her usual cycle and states she has been bleeding very heavily for the last 8 days and is also experiencing lower abdominal cramping that is radiating to her lower back. Patient states she did take a test that was negative. Patient has been consistent with her control pills. Patient is . Patient admits to having a miscarriage around 3 months . Patient states her pain and bleeding this past week feels similar to previous miscarriage. Patient admits to having 3 C-sections. Last BM was today and was normal. No other abdominal surgeries. Patient denies fever, chills, nausea, vomiting, chest pain, shortness of breath. Patient has no other complaints at this time. Upon arrival to ED, vital signs stable, afebrile. - Related Data Home Medications Medication Instructions Recorded Confirmed Aspirin EC [Ecotrin Low Dose] 81 mg PO DAILY 06/11/16 02/19/19 Shital Fe 1.5-30 1 tab PO DAILY@1815 11/22/18 02/19/19 INSULIN LISPRO (humaLOG) [humaLOG] 40 - 60 units SQ AC-TID 02/19/19 02/19/19 Insulin Detemir (Levemir) [Levemir] 80 unit SQ HS 02/19/19 02/19/19 Previous Rx's Medication Instructions Recorded Atorvastatin [Lipitor] 40 mg PO DAILY #90 tab 02/20/19 Lisinopril [Zestril] 5 mg PO DAILY #90 tab 02/20/19 Pantoprazole [Protonix] 40 mg PO AC-BRKFST #90 tablet. 02/20/19 predniSONE 50 mg PO DAILY #4 tab 02/20/19 Allergies Allergy/AdvReac Type Severity Reaction Status Date / Time azithromycin Allergy Unknown Verified 04/25/19 19:10 brompheniramine maleate Allergy Unknown Verified 04/25/19 19:10 [From Dimetapp Cold-Allergy (PE)] cephalexin [From Keflex] Allergy Unknown Verified 04/25/19 19:10 Penicillins Allergy Unknown Verified 04/25/19 19:10 phenylephrine HCl Allergy Unknown Verified 04/25/19 19:10 [From Dimetapp Cold-Allergy (PE)] sulfamethoxazole Allergy Unknown Verified 04/25/19 19:10 [From Septra] tetracycline Allergy Unknown Verified 04/25/19 19:10 theophylline anhydrous Allergy Unknown Verified 04/25/19 19:10 [From [place]-Dur] trimethoprim [From ] Allergy Unknown Verified 04/25/19 19:10 Review of Systems ROS Statement: Those systems with pertinent positive or pertinent negative responses have been documented in the HPI. ROS Other: All systems not noted in ROS Statement are negative. Past Medical History Past Medical History: Asthma, Diabetes Mellitus, Hypertension Additional Past Medical History / Comment(s): IDDM type II History of Any Multi-Drug Resistant Organisms: None Reported Past Surgical History: Section Additional Past Surgical History / Comment(s): x 3 Past Anesthesia/Blood Transfusion Reactions: No Reported Reaction Past Psychological History: Anxiety Smoking Status: Never smoker - Past Family History Father History Unknown: Yes Mother Family Medical History: Myocardial Infarction (NH) Additional Family Medical History / Comment(s): Mother had a NH at the age of 52 yrs. She has Grave's disease General Exam - General Exam Comments Initial Comments: GENERAL: Well-appearing, well-nourished and in no acute distress. Morbidly obese. HEAD: Atraumatic, normocephalic. EYES: Pupils equal round and reactive to light, extraocular movements intact, sclera anicteric, conjunctiva are normal. ENT: TMs normal, nares patent, oropharynx clear without exudates. Moist mucous membranes. NECK: Normal range of motion, supple without lymphadenopathy or JVD. LUNGS: Breath sounds clear to auscultation bilaterally and equal. No wheezes rales or rhonchi. HEART: Regular rate and rhythm without murmurs, rubs or gallops. ABDOMEN: Lower abdominal soreness. Soft, normoactive bowel sounds. No guarding, no rebound. No masses appreciated. : Deferred EXTREMITIES: Normal range of motion, no pitting or edema. No clubbing or cyanosis. NEUROLOGICAL: Cranial nerves II through XII grossly intact. Normal speech, normal gait. PSYCH: Normal mood, normal affect. SKIN: Warm, Dry, normal turgor, no rashes or lesions noted. Limitations: no limitations Course Vital Signs 04/25/19 19:08 Temperature 98 F Pulse Rate 102 H Respiratory 20 Rate Blood Pressure 148/85 O2 Sat by Pulse 100 Oximetry Medical Decision Making - Medical Decision Making Patient is a 39-year-old female complaining of heavy vaginal bleeding 8 days. Patient is on control pills. Patient states this is early for her regular menstrual cycle and she is also having lower abdominal pain that radiates to her back. Patient denies any recent changes in medication. Vital signs are stable, afebrile. Patient's exam reveals suprapubic tenderness on palpation. Patient is morbidly obese. Rest of exam is unremarkable. CBC is within normal limits. Patient is not anemic. CMP is normal except for glucose is 345. Patient admits to being diabetic type II. UA reveals greater than 182 RBCs. Urine hCG is negative. Ultrasound shows a mildly enlarged uterus, with blood and clots seen in the endocervical canal. No IUP. no endometrial thickening. Discussed with patient that she needs to follow up with [facility] for further testing and management. Patient is agreement with this plan. Return parameters were discussed with the patient, she verbalized understanding. Case discussed with Dr. Grullon. - Lab Data Result diagrams: 04/25/19 19:45 04/25/19 19:45 Lab Results 04/25/19 04/25/19 04/25/19 Range/Units 19:45 19:45 19:45 WBC 8.5 (3.8-10.6) k/uL RBC 5.84 H (3.80-5.40) m/uL Hgb 16.1 H (11.4-16.0) gm/dL Hct 47.7 H (34.0-46.0) % MCV 81.6 (80.0-100.0) fL MCH 27.5 (25.0-35.0) pg MCHC 33.7 (31.0-37.0) g/dL RDW 14.1 (11.5-15.5) % Plt Count 208 (150-450) k/uL Neutrophils % 71 % Lymphocytes % 21 % Monocytes % 4 % Eosinophils % 2 % Basophils % 1 % Neutrophils # 6.1 (1.3-7.7) k/uL Lymphocytes # 1.8 (1.0-4.8) k/uL Monocytes # 0.3 (0-1.0) k/uL Eosinophils # 0.2 (0-0.7) k/uL Basophils # 0.1 (0-0.2) k/uL Sodium 136 L (137-145) mmol/L Potassium 4.1 (3.5-5.1) mmol/L Chloride 98 (98-107) mmol/L Carbon Dioxide 25 (22-30) mmol/L Anion Gap 13 mmol/L BUN 18 H (7-17) mg/dL Creatinine 0.61 (0.52-1.04) mg/dL Est GFR (CKD-EPI)AfAm >90 (>60 ml/min/1.73 sqM) Est GFR (CKD-EPI)NonAf >90 (>60 ml/min/1.73 sqM) Glucose 345 H (74-99) mg/dL Calcium 9.6 (8.4-10.2) mg/dL Total Bilirubin 0.5 (0.2-1.3) mg/dL AST 36 (14-36) U/L ALT 25 (9-52) U/L Alkaline Phosphatase 109 (38-126) U/L Total Protein 7.0 (6.3-8.2) g/dL Albumin 3.8 (3.5-5.0) g/dL Urine Color Urine Appearance (Clear) Urine RBC (0-5) /hpf Urine HCG, Qual Not Detected (Not Detectd) 04/25/19 Range/Units 19:45 WBC (3.8-10.6) k/uL RBC (3.80-5.40) m/uL Hgb (11.4-16.0) gm/dL Hct (34.0-46.0) % MCV (80.0-100.0) fL MCH (25.0-35.0) pg MCHC (31.0-37.0) g/dL RDW (11.5-15.5) % Plt Count (150-450) k/uL Neutrophils % % Lymphocytes % % Monocytes % % Eosinophils % % Basophils % % Neutrophils # (1.3-7.7) k/uL Lymphocytes # (1.0-4.8) k/uL Monocytes # (0-1.0) k/uL Eosinophils # (0-0.7) k/uL Basophils # (0-0.2) k/uL Sodium (137-145) mmol/L Potassium (3.5-5.1) mmol/L Chloride (98-107) mmol/L Carbon Dioxide (22-30) mmol/L Anion Gap mmol/L BUN (7-17) mg/dL Creatinine (0.52-1.04) mg/dL Est GFR (CKD-EPI)AfAm (>60 ml/min/1.73 sqM) Est GFR (CKD-EPI)NonAf (>60 ml/min/1.73 sqM) Glucose (74-99) mg/dL Calcium (8.4-10.2) mg/dL Total Bilirubin (0.2-1.3) mg/dL AST (14-36) U/L ALT (9-52) U/L Alkaline Phosphatase (38-126) U/L Total Protein (6.3-8.2) g/dL Albumin (3.5-5.0) g/dL Urine Color Light Red Urine Appearance Bloody H (Clear) Urine RBC >182 H (0-5) /hpf Urine HCG, Qual (Not Detectd) Disposition Clinical Impression: Vaginal bleeding, Lower abdominal pain Disposition: HOME SELF-CARE Condition: Stable Instructions (If sedation given, give patient instructions): Dysmenorrhea (ED), Abdominal Pain (ED) Additional Instructions: Please return to the Emergency Department if symptoms worsen or any other concerns. Follow-up with [facility] as discussed. Is patient prescribed a controlled substance at d/c from ED?: No Referrals: None,Stated [Primary Care Provider] - 1-2 days
[2019-04-25 20:04] LABS: Basophils # (A) 0.1 k/uL (0-0.2); Basophils % (A) 1 %; Eosinophils # (A) 0.2 k/uL (0-0.7); Eosinophils % (A) 2 %; HCT 47.7 % (34.0-46.0); HGB 16.1 gm/dL (11.4-16.0); Lymphocytes # (A) 1.8 k/uL (1.0-4.8); Lymphocytes % (A) 21 %; MCH 27.5 pg (25.0-35.0); MCHC 33.7 g/dL (31.0-37.0); MCV 81.6 fL (80.0-100.0); Mean Platelet Volume 7.6; Monocytes # (A) 0.3 k/uL (0-1.0); Monocytes % (A) 4 %; Neutrophils # (A) 6.1 k/uL (1.3-7.7); Neutrophils % (A) 71 %; Platelet Count 208 k/uL (150-450); RBC 5.84 m/uL (3.80-5.40); RDW 14.1 % (11.5-15.5); WBC 8.5 k/uL (3.8-10.6)
[2019-04-25 20:09] LABS: ALT 25 U/L (9-52); AST 36 U/L (14-36); African American GFR (CKD) >90 (>60 ml/min/1.73 sqM); Albumin 3.8 g/dL (3.5-5.0); Alkaline Phosphatase 109 U/L (38-126); Anion Gap 13 mmol/L; Blood Urea Nitrogen 18 mg/dL (7-17); Calcium 9.6 mg/dL (8.4-10.2); Carbon Dioxide 25 mmol/L (22-30); Chloride 98 mmol/L (98-107); Glucose 345 mg/dL (74-99); Potassium 4.1 mmol/L (3.5-5.1); Sodium 136 mmol/L (137-145); Total Bilirubin 0.5 mg/dL (0.2-1.3)
[2019-04-25 20:11] LABS: Appearance,Urine Bloody (Clear); Color,Urine Light Red; RBC,Urine >182 /hpf (0-5)
[2019-04-25] MEDS ORDERED: SODIUM CHLORIDE 0.9% 1,000 ML IV STA (20:13)
--- NOTE | 2019-04-25 20:45 | US ---
EXAMINATION TYPE: US transvaginal DATE OF EXAM: 04/25/2019 COMPARISON: US 2014 CLINICAL HISTORY: Pain, heavy bleeding. Heavy bleeding x 1 week, 4, para 3, miscarriage 1, hi story c-sections TECHNIQUE: Transvaginal ER exam. Date of LMP: 03/27/2019 EXAM MEASUREMENTS: Uterus: 10.6 x 5.4 x 5.6 cm Endometrial Stripe: 1.0 cm Right Ovary: not seen Left Ovary: not seen Difficult and limited study due to obese patient 1. Uterus: mildly enlarged, heterogeneous 2. Endometrium: limited visualization, probable blood and clots seen within endocervical canal 3. Right Ovary: not seen due to overlying bowel gas 4. Left Ovary: not seen due to overlying bowel gas 5. Bilateral Adnexa: wnl 6. Posterior cul-de-sac: wnl IMPRESSION: Mixed echogenicity in the enlarged lower uterine segment consistent with blood clot and d ebris. no intrauterine gestational sac. No endometrial thickening.
[2019-04-25 21:27] VITALS: BP 139/78; PULSE 82; RESP 18; TEMP 97.9
== END 2019-04-25 21:28 | disposition home or self-care (01) ==
LOC: EC 19:01
DX: N93.9 Abnormal uterine and vaginal bleeding, unspecified (principal); R10.30 Lower abdominal pain, unspecified; E11.9 Type 2 diabetes mellitus without complications; N85.2 Hypertrophy of uterus; E66.01 Morbid (severe) obesity due to excess calories; I10 Essential (primary) hypertension; Z79.3 Long term (current) use of hormonal contraceptives; Z79.4 Long term (current) use of insulin; Z79.82 Long term (current) use of aspirin; Z88.0 Allergy status to penicillin; Z88.1 Allergy status to other antibiotic agents; Z88.2 Allergy status to sulfonamides; Z88.8 Allergy status to other drugs, medicaments and biological substances; Z68.43 Body mass index [BMI] 50.0-59.9, adult; Z98.890 Other specified postprocedural states
CPT/HCPCS: 36415; 76830; 80053; 81001; 81025; 85025; 96360; 99284

== ENCOUNTER 2020-04-20 19:48 | Emergency (ER) | payer OTHER ==
[2020-04-20 19:56] VITALS: RESP 18
[2020-04-20] MEDS ORDERED: KETOROLAC 15 MG/ML 1 ML VIAL IM STA (20:03)
--- NOTE | 2020-04-20 20:10 | ED ---
Lower Extremity Injury HPI - General Chief Complaint: Extremity Injury, Lower Stated Complaint: Fall, L Foot Injury Time Seen by Provider: 04/20/20 19:58 Source: patient Mode of arrival: wheelchair Limitations: no limitations - History of Present Illness Initial Comments: Patient is a 40-year-old female presenting to the emergency room with a chief complaint of a fall left foot pain. Patient reports she was cleaning the deck when one of the wooden board skin and she felt there with her left leg. Patient reports abrasions near the knee and lower leg. She reports most of the pain is in the midfoot and lateral malleolus of the left lower extremity. Patient reports there is gradual bruising this developing in the region as well as swelling. Does report a tingling sensation at the lateral malleolus. Reports limited range of motion due to pain. States any weightbearing exacerbates the pain. Denies taking medication to alleviate the symptoms. States this occurred about one hour prior to arrival. - Related Data Home Medications Medication Instructions Recorded Confirmed Aspirin EC [Ecotrin Low Dose] 81 mg PO DAILY 06/11/16 10/05/19 Shital Fe 1.5-30 1 tab PO DAILY 11/22/18 10/05/19 Previous Rx's Medication Instructions Recorded Atorvastatin [Lipitor] 40 mg PO HS #30 tablet 10/06/19 INSULIN LISPRO (humaLOG) [humaLOG] 14 units SQ AC-TID #0 10/06/19 Insulin Detemir (Levemir) [Levemir] 68 unit SQ HS #0 10/06/19 lisinopriL [Zestril] 5 mg PO DAILY #30 tab 10/06/19 Allergies Allergy/AdvReac Type Severity Reaction Status Date / Time azithromycin Allergy Unknown Verified 04/20/20 19:56 brompheniramine maleate Allergy Unknown Verified 04/20/20 19:56 [From Dimetapp Cold-Allergy (PE)] cephalexin [From Keflex] Allergy Unknown Verified 04/20/20 19:56 Penicillins Allergy Unknown Verified 04/20/20 19:56 phenylephrine HCl Allergy Unknown Verified 04/20/20 19:56 [From Dimetapp Cold-Allergy (PE)] sulfamethoxazole Allergy Unknown Verified 04/20/20 19:56 [From Septra] tetracycline Allergy Unknown Verified 04/20/20 19:56 theophylline anhydrous Allergy Unknown Verified 04/20/20 19:56 [From Wenceslao-Dur] trimethoprim [From Septra] Allergy Unknown Verified 04/20/20 19:56 Review of Systems ROS Statement: Those systems with pertinent positive or pertinent negative responses have been documented in the HPI. ROS Other: All systems not noted in ROS Statement are negative. Past Medical History Past Medical History: Asthma, Diabetes Mellitus, Hypertension Additional Past Medical History / Comment(s): IDDM type II History of Any Multi-Drug Resistant Organisms: None Reported Past Surgical History: Section Additional Past Surgical History / Comment(s): x 3 Past Anesthesia/Blood Transfusion Reactions: No Reported Reaction Past Psychological History: Anxiety Past Alcohol Use History: None Reported Past Drug Use History: None Reported - Past Family History Father History Unknown: Yes Additional Family Medical History / Comment(s): Patient does not know her fa ther. Mother Family Medical History: Myocardial Infarction ([place]) Additional Family Medical History / Comment(s): Mother is alive at age 53. She had a [place] at the age of 52 yrs. History of Graves' disease, diabetes mellitus type 2, diabetic neuropathy, atrial fibrillation. Brother(s) Additional Family Medical History / Comment(s): Patient does not have any brothers or sisters. Patient has a daughter with catecholaminergic polymorphic ventricular tachycardia. General Exam Limitations: no limitations General appearance: alert, in no apparent distress, obese Head exam: Present: atraumatic, normocephalic, normal inspection Eye exam: Present: normal appearance, PERRL, EOMI Pupils: Present: normal accommodation ENT exam: Present: normal exam, normal oropharynx, mucous membranes moist Neck exam: Present: normal inspection, full ROM. Absent: tenderness Respiratory exam: Present: normal lung sounds bilaterally. Absent: respiratory distress, wheezes, rales Cardiovascular Exam: Present: regular rate, normal rhythm, normal heart sounds Extremities exam: Present: tenderness (Mid foot and lateral malleolus tenderness. Swelling in the region tenderness. Mild ecchymosis.), normal capillary refill, joint swelling (Left ankle), other (+2 ulnar and radial pulse bilateral.). Absent: normal inspection (Several small abrasions on the knee left lower leg.), full ROM (Limited range of motion with plantar dorsiflexion on the left lower extremity.) Back exam: Present: normal inspection, full ROM. Absent: tenderness Neurological exam: Present: alert, oriented X3 Psychiatric exam: Present: normal affect, normal mood Skin exam: Present: warm, dry, intact, normal color Course Vital Signs 04/20/20 19:52 Temperature 98.2 F Pulse Rate 91 Respiratory 18 Rate Blood Pressure 145/78 O2 Sat by Pulse 100 Oximetry Procedures - Orthopedic Splinting/Casting Injury #1 Side: left Lower Extremity Injury Location: short leg, ankle Lower Extremity Immobilizer: posterior splint, Bowen wrap, synthetic pre-padded splint Other Orthopedic Equipment: crutches Additional Comments: Strict nonweightbearing Medical Decision Making - Medical Decision Making Patient is a 40-year-old female presenting to emergency Department chief complaint of left foot pain. On exam patient has mid foot and left lateral malleoli swelling and tenderness. X-ray reveals a fifth metatarsal transverse, nondisplaced fracture. Posterior ankle splint applied with extra padding on the foot. Patient given Tylenol [address] or operative machinery when taking medication. She was advised to RICE. Advised to follow with event specialist food demonstrator. Strict nonweightbearing. Return parameters discussed. case discussed with physician. Disposition Clinical Impression: Injury of foot, left, Fracture of fifth metatarsal bone of left foot Disposition: HOME SELF-CARE Condition: Stable Instructions (If sedation given, give patient instructions): Foot Fracture in Adults (ED) Additional Instructions: Do not bear any weight on the left foot. Use crutches. Do not drive or operate heavy machinery when taking the Tylenol. Rest, elevate and apply ice compress. Follow-up with event specialist food demonstrator. Return to emergency department if symptoms worsen. Is patient prescribed a controlled substance at d/c from ED?: No Referrals: [facility] [Primary Care Provider] - 1-2 days Loi Schroeder PAC [PHYSICIAN AUDIT TECH] - 1-2 days Time of Disposition: 21:09
--- NOTE | 2020-04-20 20:30 | XR ---
EXAMINATION TYPE: XR ankle complete LT DATE OF EXAM: 04/20/2020 COMPARISON: None HISTORY: Pain TECHNIQUE: 3 views FINDINGS: There is plantar calcaneal spurring. There is nondisplaced transverse fracture across the p roximal shaft of the fifth metatarsal. Ankle mortise is anatomic. IMPRESSION: Calcaneal spurring. Nondisplaced fifth metatarsal fracture..
--- NOTE | 2020-04-20 20:32 | XR ---
EXAMINATION TYPE: XR foot complete LT DATE OF EXAM: 04/20/2020 COMPARISON: NONE HISTORY: Pain TECHNIQUE: 3 views FINDINGS: There is nondisplaced transverse fracture across the proximal shaft of the fifth metatarsal . There is no dislocation. Joint spaces are normal. There is plantar calcaneal spurring. The toes sánchez ear intact. IMPRESSION: Nondisplaced fifth metatarsal fracture.
[2020-04-20] MEDS ORDERED: ACET/COD 300 MG/30 MG STARTER PACK 6 TAB BTL PO STA (21:16)
[2020-04-20 21:27] VITALS: BP 148/97; PULSE 80; TEMP 98.6
== END 2020-04-20 21:27 | disposition home or self-care (01) ==
LOC: EC 19:48
DX: S92.355A Nondisplaced fracture of fifth metatarsal bone, left foot, initial encounter for closed fracture (principal); I10 Essential (primary) hypertension; E11.9 Type 2 diabetes mellitus without complications; J45.909 Unspecified asthma, uncomplicated; Z79.82 Long term (current) use of aspirin; Z88.0 Allergy status to penicillin; Z88.1 Allergy status to other antibiotic agents; Z88.2 Allergy status to sulfonamides; Z88.8 Allergy status to other drugs, medicaments and biological substances
CPT/HCPCS: 73610; 73630; 99283; 29515; 96372; J1885

== ENCOUNTER 2020-09-10 20:01 | Emergency (ER) | payer OTHER ==
--- NOTE | 2020-09-10 20:15 | ED ---
General Adult HPI - General Chief complaint: Chest Pain Stated complaint: Chest Pain,SOB Time Seen by Provider: 09/10/20 20:08 Source: patient Mode of arrival: ambulatory Limitations: no limitations - History of Present Illness Initial comments: Patient presents the ED with her for evaluation. Patient states that she has had left shoulder pain the past couple of months, which she attributes to the use of crutches following a foot fracture. Patient states that for the past 2 days she has had constant and "burning" pain in her central chest, and she states that she has developed left scapular pain today as well. Patient denies chest trauma or injury, fever or chills, headache, focal numbness/weakness/neuro deficit, neck/jaw pain, pleuritic pain, dyspnea, cough or cold symptoms, palpitations, dizziness, nausea/vomiting/diaphoresis, abdo vanessa pain, urinary symptoms, leg or calf swelling or pain, or any other symptoms or complaints. - Related Data Home Medications Medication Instructions Recorded Confirmed Shital Fe 1.5-30 1 tab PO DAILY 11/22/18 09/10/20 Cetirizine HCl [Zyrtec] 10 mg PO DAILY 04/20/20 09/10/20 INSULIN LISPRO (humaLOG) [humaLOG] 42 units SQ AC-TID 04/20/20 09/10/20 Insulin Glargine [Lantus] 80 unit SQ HS 04/20/20 09/10/20 Atorvastatin [Lipitor] 40 mg PO DAILY 09/10/20 09/10/20 Pantoprazole Sodium [Protonix] 40 mg PO DAILY 09/10/20 09/10/20 Previous Rx's Medication Instructions Recorded lisinopriL [Zestril] 5 mg PO DAILY #30 tab 10/06/19 Famotidine 20 mg PO HS #14 tab 09/10/20 Allergies Allergy/AdvReac Type Severity Reaction Status Date / Time azithromycin Allergy Unknown Verified 09/10/20 21:06 brompheniramine maleate Allergy Unknown Verified 09/10/20 21:06 [From Dimetapp Cold-Allergy (PE)] cephalexin [From Keflex] Allergy Unknown Verified 09/10/20 21:06 Penicillins Allergy Unknown Verified 09/10/20 21:06 phenylephrine HCl Allergy Unknown Verified 09/10/20 21:06 [From Dimetapp Cold-Allergy (PE)] sulfamethoxazole Allergy Unknown Verified 09/10/20 21:06 [From Septra] tetracycline Allergy Unknown Verified 09/10/20 21:06 theophylline anhydrous Allergy Unknown Verified 09/10/20 21:06 [From Wenceslao-Dur] trimethoprim [From Septra] Allergy Unknown Verified 09/10/20 21:06 Review of Systems ROS Statement: Those systems with pertinent positive or pertinent negative responses have been documented in the HPI. ROS Other: All systems not noted in ROS Statement are negative. Past Medical History Past Medical History: Asthma, Diabetes Mellitus, Hypertension Additional Past Medical History / Comment(s): IDDM type II History of Any Multi-Drug Resistant Organisms: None Reported Past Surgical History: Section Additional Past Surgical History / Comment(s): x 3 Past Anesthesia/Blood Transfusion Reactions: No Reported Reaction Past Psychological History: Anxiety Smoking Status: Never smoker Past Alcohol Use History: None Reported Past Drug Use History: None Reported - Past Family History Father History Unknown: Yes Additional Family Medical History / Comment(s): Patient does not know her fat her. Mother Family Medical History: Myocardial Infarction ([place]) Additional Family Medical History / Comment(s): Mother is alive at age 53. She had a [place] at the age of 52 yrs. History of Graves' disease, diabetes mellitus type 2, diabetic neuropathy, atrial fibrillation. Brother(s) Additional Family Medical History / Comment(s): Patient does not have any brothers or sisters. Patient has a daughter with catecholaminergic polymorphic ventricular tachycardia. General Exam Limitations: no limitations General appearance: alert, in no apparent distress Head exam: Present: atraumatic, normocephalic Eye exam: Present: normal appearance, EOMI ENT exam: Present: mucous membranes moist Neck exam: Present: other (Trachea is in midline) Respiratory exam: Present: normal lung sounds bilaterally. Absent: respiratory distress, wheezes, rales, rhonchi, stridor, chest wall tenderness Cardiovascular Exam: Present: normal rhythm, tachycardia, normal heart sounds, other (Normal radial pulses bilaterally) GI/Abdominal exam: Present: soft. Absent: distended, tenderness, guarding Extremities exam: Present: other (Negative Homans sign bilaterally). Absent: tenderness, pedal edema, calf tenderness Back exam: Absent: tenderness Neurological exam: Present: alert, oriented X3. 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 Patient denies development of any new pain or symptoms while in the ED. Patient remains alert and breathing comfortably with a normal room air oxygen saturation. Patient states that her left shoulder/scapular pain is worse with movement of her left arm, and she has requested a left arm sling. Patient and are aware the patient's test results, and they both feel comfortable with the patient going home at this time. Patient was counseled about chest pain/GERD and scapular/shoulder pain. Patient was clearly explained return and follow-up instructions, and she was instructed to have a low threshold for return to the ED should her symptoms worsen. Patient was instructed to follow up closely with her primary care provider. Patient feels comfortable with this plan. EKG Findings - EKG Comments: EKG Findings:: Sinus tachycardia, ventricular rate of 110 bpm, left anterior fascicular block, normal ME and QRS intervals, normal QT interval, normal axis, no ST or T-wave abnormality Medical Decision Making - Medical Decision Making Patient is hyperglycemic, but she has a normal anion gap and a normal serum bicarb level. Patient's labs are otherwise fairly unremarkable. Patient's EKG shows no acute ischemic abnormality, and her chest x-ray is unremarkable. Reports having constant burning chest pain for the past 2 days, and her troponin is negative. Patient's d-dimer is also negative. Patient's burning chest pain has resolved with a GI cocktail that she was given in the ED, and as such, I suspect that her chest pain may be secondary to gastroesophageal reflux. I suspect the patient's left shoulder/scapular pain is likely musculoskeletal in etiology, as she reports that it is worse with any movement of her left arm. Patient was provided with a left arm sling in the ED. Will discharge patient home with a prescription for famotidine and instructions for close primary care provider follow-up. Patient feels comfortable to plan. - Lab Data Result diagrams: 09/10/20 20:41 09/10/20 20:41 Lab Results 09/10/20 09/10/20 09/10/20 Range/Units 20:41 20:41 20:41 WBC 7.0 (3.8-10.6) k/uL RBC 6.30 H (3.80-5.40) m/uL Hgb 17.2 H (11.4-16.0) gm/dL Hct 51.9 H (34.0-46.0) % MCV 82.5 (80.0-100.0) fL MCH 27.3 (25.0-35.0) pg MCHC 33.1 (31.0-37.0) g/dL RDW 14.1 (11.5-15.5) % Plt Count 206 (150-450) k/uL MPV 8.3 Neutrophils % 69 % Lymphocytes % 22 % Monocytes % 3 % Eosinophils % 4 % Basophils % 1 % Neutrophils # 4.9 (1.3-7.7) k/uL Lymphocytes # 1.5 (1.0-4.8) k/uL Monocytes # 0.2 (0-1.0) k/uL Eosinophils # 0.3 (0-0.7) k/uL Basophils # 0.1 (0-0.2) k/uL PT 10.2 (9.0-12.0) sec INR 0.9 (<1.2) APTT 20.4 L (22.0-30.0) sec D-Dimer 0.40 (<0.60) mg/L FEU Sodium 136 L (137-145) mmol/L Potassium 4.2 (3.5-5.1) mmol/L Chloride 101 (98-107) mmol/L Carbon Dioxide 24 (22-30) mmol/L Anion Gap 11 mmol/L BUN 12 (7-17) mg/dL Creatinine 0.63 (0.52-1.04) mg/dL Est GFR (CKD-EPI)AfAm >90 (>60 ml/min/1.73 sqM) Est GFR (CKD-EPI)NonAf >90 (>60 ml/min/1.73 sqM) Glucose 394 H (74-99) mg/dL Calcium 9.4 (8.4-10.2) mg/dL Magnesium 1.4 L (1.6-2.3) mg/dL Total Bilirubin 0.7 (0.2-1.3) mg/dL AST 49 H (14-36) U/L ALT 35 H (4-34) U/L Alkaline Phosphatase 126 (38-126) U/L Troponin I (0.000-0.034) ng/mL NT-Pro-B Natriuret Pep pg/mL Total Protein 7.8 (6.3-8.2) g/dL Albumin 4.2 (3.5-5.0) g/dL HCG, Qual Not Detected 09/10/20 09/10/20 Range/Units 20:41 20:41 WBC (3.8-10.6) k/uL RBC (3.80-5.40) m/uL Hgb (11.4-16.0) gm/dL Hct (34.0-46.0) % MCV (80.0-100.0) fL MCH (25.0-35.0) pg MCHC (31.0-37.0) g/dL RDW (11.5-15.5) % Plt Count (150-450) k/uL MPV Neutrophils % % Lymphocytes % % Monocytes % % Eosinophils % % Basophils % % Neutrophils # (1.3-7.7) k/uL Lymphocytes # (1.0-4.8) k/uL Monocytes # (0-1.0) k/uL Eosinophils # (0-0.7) k/uL Basophils # (0-0.2) k/uL PT (9.0-12.0) sec INR (<1.2) APTT (22.0-30.0) sec D-Dimer (<0.60) mg/L FEU Sodium (137-145) mmol/L Potassium (3.5-5.1) mmol/L Chloride (98-107) mmol/L Carbon Dioxide (22-30) mmol/L Anion Gap mmol/L BUN (7-17) mg/dL Creatinine (0.52-1.04) mg/dL Est GFR (CKD-EPI)AfAm (>60 ml/min/1.73 sqM) Est GFR (CKD-EPI)NonAf (>60 ml/min/1.73 sqM) Glucose (74-99) mg/dL Calcium (8.4-10.2) mg/dL Magnesium (1.6-2.3) mg/dL Total Bilirubin (0.2-1.3) mg/dL AST (14-36) U/L ALT (4-34) U/L Alkaline Phosphatase (38-126) U/L Troponin I <0.012 (0.000-0.034) ng/mL NT-Pro-B Natriuret Pep 49 pg/mL Total Protein (6.3-8.2) g/dL Albumin (3.5-5.0) g/dL HCG, Qual - Radiology Data Radiology results: image reviewed (Chest x-ray is negative) Disposition Clinical Impression: Chest pain, Pain in scapula, Hyperglycemia, Shoulder pain Disposition: HOME SELF-CARE Condition: Stable Instructions (If sedation given, give patient instructions): Chest Pain (ED), Gastroesophageal Reflux Disease (ED), Back Pain (ED), Shoulder Pain (ED) Additional Instructions: Return to the ER immediately should you develop new or worsening pain, shortness of breath, a fever, vomiting, feeling dizzy or faint, or new or worsening symptoms. Follow up closely with your primary care provider. Prescriptions: Famotidine 20 mg PO HS #14 tab Is patient prescribed a controlled substance at d/c from ED?: No Referrals: [facility] [Primary Care Provider] - 1-2 days Time of Disposition: 22:10
[2020-09-10] MEDS ORDERED: MAG HYDROX/AL HYDROX/SIMETH 30 ML, HYOSCYAMINE ELIXIR 10 ML, LIDOCAINE VISCOUS 2% 10 ML PO STA ×3 (20:30)
[2020-09-10 20:51] LABS: Basophils # (A) 0.1 k/uL (0-0.2); Basophils % (A) 1 %; Eosinophils # (A) 0.3 k/uL (0-0.7); Eosinophils % (A) 4 %; HCT 51.9 % (34.0-46.0); HGB 17.2 gm/dL (11.4-16.0); Lymphocytes # (A) 1.5 k/uL (1.0-4.8); Lymphocytes % (A) 22 %; MCH 27.3 pg (25.0-35.0); MCHC 33.1 g/dL (31.0-37.0); MCV 82.5 fL (80.0-100.0); Mean Platelet Volume 8.3; Monocytes # (A) 0.2 k/uL (0-1.0); Monocytes % (A) 3 %; Neutrophils # (A) 4.9 k/uL (1.3-7.7); Neutrophils % (A) 69 %; Platelet Count 206 k/uL (150-450); RDW 14.1 % (11.5-15.5)
[2020-09-10 21:11] LABS: ALT 35 U/L (4-34); AST 49 U/L (14-36); African American GFR (CKD) >90 (>60 ml/min/1.73 sqM); Albumin 4.2 g/dL (3.5-5.0); Alkaline Phosphatase 126 U/L (38-126); Anion Gap 11 mmol/L; Blood Urea Nitrogen 12 mg/dL (7-17); Calcium 9.4 mg/dL (8.4-10.2); Carbon Dioxide 24 mmol/L (22-30); Chloride 101 mmol/L (98-107); Glucose 394 mg/dL (74-99); Magnesium 1.4 mg/dL (1.6-2.3); Non-African American GFR(CKD) >90 (>60 ml/min/1.73 sqM); Potassium 4.2 mmol/L (3.5-5.1); Sodium 136 mmol/L (137-145); Total Bilirubin 0.7 mg/dL (0.2-1.3); Total Protein 7.8 g/dL (6.3-8.2)
[2020-09-10 21:13] LABS: HCG,Qualitative Serum Not Detected
[2020-09-10 21:17] LABS: D-Dimer 0.4 mg/L FEU (<0.60); INR 0.9 (<1.2); Prothrombin Time 10.2 sec (9.0-12.0)
[2020-09-10 21:19] LABS: Partial Thromboplastin Time 20.4 sec (22.0-30.0)
--- NOTE | 2020-09-10 21:24 | XR ---
EXAMINATION TYPE: XR chest 2V DATE OF EXAM: 09/10/2020 COMPARISON: October 05, 2019 HISTORY: Chest pain TECHNIQUE: FINDINGS: Heart is normal. Lungs are clear. Diaphragm is normal. Bony thorax appears normal. Pulmonar y vascularity is normal. IMPRESSION: Normal chest. No change.
[2020-09-10 22:17] VITALS: RESP 18
[2020-09-10 22:21] VITALS: BP 142/85; PULSE 103; TEMP 98.5
== END 2020-09-10 22:27 | disposition home or self-care (01) ==
LOC: EC 20:01
DX: R07.9 Chest pain, unspecified (principal); M25.512 Pain in left shoulder; E11.65 Type 2 diabetes mellitus with hyperglycemia; J45.909 Unspecified asthma, uncomplicated; Z79.3 Long term (current) use of hormonal contraceptives; Z79.899 Other long term (current) drug therapy; Z79.4 Long term (current) use of insulin; Z88.1 Allergy status to other antibiotic agents; Z88.0 Allergy status to penicillin; Z88.8 Allergy status to other drugs, medicaments and biological substances; Z88.2 Allergy status to sulfonamides
CPT/HCPCS: 36415; 71046; 80053; 83735; 83880; 84484; 84703; 85025; 85379; 85610; 85730; 93005; 99285

== ENCOUNTER 2020-12-04 15:16 | Emergency (ER) | payer OTHER ==
--- NOTE | 2020-12-04 16:13 | ED ---
General Adult HPI <O[place]iz [place] - Last Filed: 12/04/20 16:14> - General Source: patient, RN notes reviewed Mode of arrival: ambulatory Limitations: no limitations - History of Present Illness -: days(s) (6) Associated Symptoms: cough, headaches <Antoni Ross - Last Filed: 12/04/20 20:16> - General Stated complaint: Fever, SOB - History of Present Illness Initial comments: 40-year-old female with history of asthma, diabetes and hypertension presents to the emergency department for cough and fever. Patient reports her other family member has tested positive who she lives with. He states he started having a fever last night as well as no productive cough. She does report occasional shortness of breath. States she spoke with her primary care physician who advised to come to the emergency department for evaluation. She denies any chest pain. no covid vaccine ([place]) - Related Data Home Medications Medication Instructions Recorded Confirmed Shital Fe 1.5-30 1 tab PO DAILY 11/22/18 09/10/20 Cetirizine HCl [Zyrtec] 10 mg PO DAILY 04/20/20 09/10/20 INSULIN LISPRO (humaLOG) [humaLOG] 42 units SQ AC-TID 04/20/20 09/10/20 Insulin Glargine [Lantus] 80 unit SQ HS 04/20/20 09/10/20 Atorvastatin [Lipitor] 40 mg PO DAILY 09/10/20 09/10/20 Pantoprazole Sodium [Protonix] 40 mg PO DAILY 09/10/20 09/10/20 Previous Rx's Medication Instructions Recorded lisinopriL [Zestril] 5 mg PO DAILY #30 tab 10/06/19 Famotidine 20 mg PO HS #14 tab 09/10/20 Allergies Allergy/AdvReac Type Severity Reaction Status Date / Time azithromycin Allergy Unknown Verified 12/04/20 16:14 brompheniramine maleate Allergy Unknown Verified 12/04/20 16:14 [From Dimetapp Cold-Allergy (PE)] cephalexin [From Keflex] Allergy Unknown Verified 12/04/20 16:14 Penicillins Allergy Unknown Verified 12/04/20 16:14 phenylephrine HCl Allergy Unknown Verified 12/04/20 16:14 [From Dimetapp Cold-Allergy (PE)] sulfamethoxazole Allergy Unknown Verified 12/04/20 16:14 [From Septra] tetracycline Allergy Unknown Verified 12/04/20 16:14 theophylline anhydrous Allergy Unknown Verified 12/04/20 16:14 [From Wenceslao-Dur] trimethoprim [From Septra] Allergy Unknown Verified 12/04/20 16:14 Review of Systems ROS Other: All systems not noted in ROS Statement are negative. <O[place] - Last Filed: 12/04/20 16:14> ROS Other: All systems not noted in ROS Statement are negative. <Antoni Ross - Last Filed: 12/04/20 20:16> ROS Statement: Those systems with pertinent positive or pertinent negative responses have been documented in the HPI. Past Medical History Past Medical History: Asthma, Diabetes Mellitus, Hypertension Additional Past Medical History / Comment(s): IDDM type II History of Any Multi-Drug Resistant Organisms: None Reported Past Surgical History: Section Additional Past Surgical History / Comment(s): x 3 Past Anesthesia/Blood Transfusion Reactions: No Reported Reaction Past Psychological History: Anxiety Smoking Status: Never smoker Past Alcohol Use History: None Reported Past Drug Use History: None Reported - Past Family History Father History Unknown: Yes Additional Family Medical History / Comment(s): Patient does not know her father. Mother Family Medical History: Myocardial Infarction ([place]) Additional Family Medical History / Comment(s): Mother is alive at age 53. She had a [place] at the age of 52 yrs. History of Graves' disease, diabetes mellitus type 2, diabetic neuropathy, atrial fibrillation. Brother(s) Additional Family Medical History / Comment(s): Patient does not have any brothers or sisters. Patient has a daughter with catecholaminergic polymorphic ventricular tachycardia. <Ortiz [place] - Last Filed: 12/04/20 16:14> General Exam General appearance: alert, in no apparent distress, obese Respiratory exam: Present: normal lung sounds bilaterally. Absent: respiratory distress, wheezes, rales, rhonchi, stridor Cardiovascular Exam: Present: regular rate, normal rhythm, normal heart sounds. Absent: systolic murmur <[place] - Last Filed: 12/04/20 16:14> General appearance: alert, in no apparent distress Head exam: Present: normocephalic, normal inspection Eye exam: Present: normal appearance ENT exam: Present: normal exam, mucous membranes moist Neck exam: Present: normal inspection, full ROM. Absent: tenderness, meningismus, lymphadenopathy, thyromegaly GI/Abdominal exam: Present: soft, normal bowel sounds. Absent: distended, tenderness, guarding, rebound, rigid Neurological exam: Present: alert, oriented X3, CN II-XII intact Psychiatric exam: Present: normal affect, normal mood Skin exam: Present: warm, dry, intact, normal color. Absent: rash <Antoni Ross - Last Filed: 12/04/20 20:16> Course Vital Signs 12/04/20 12/04/20 12/04/20 16:12 17:51 17:53 Temperature 99.1 F Pulse Rate 95 Pulse Rate [ Left] Respiratory 18 20 20 Rate Blood Pressure 141/78 Blood Pressure [Left Arm] O2 Sat by Pulse 99 Oximetry 12/04/20 12/04/20 18:32 19:12 Temperature 98.7 F 98.7 F Pulse Rate 86 Pulse Rate [ 90 Left] Respiratory 20 16 Rate Blood Pressure 146/86 Blood Pressure 158/97 [Left Arm] O2 Sat by Pulse 99 98 Oximetry Medical Decision Making <Antoni Ross - Last Filed: 12/04/20 20:16> - Medical Decision Making Patient in no acute distress, chest x-ray negative for infiltrates or acute pulmonary process, heart size is within normal limits. Oxygen saturation 99% on room air, heart rate of 95 respiratory rate 18. Patient received monoclonal antibodies and will be discharged home to follow up with primary care doctor. (Antoni Ross) - Lab Data Lab Results 12/04/20 Range/Units 16:15 Coronavirus (PCR) Detected A (Not Detectd) Disposition <[place] - Last Filed: 12/04/20 16:14> Is patient prescribed a controlled substance at d/c from ED?: No Time of Disposition: 20:16 <Antoni Ross - Last Filed: 12/04/20 20:16> Clinical Impression: COVID-19 Disposition: HOME SELF-CARE Condition: Good Additional Instructions: quarantine for 10 days from symptom onset, return to the emergency room if increasing shortness of breath, chest pain, or inability to keep fluids down. Referrals: [facility] [Primary Care Provider] - 1-2 days
--- NOTE | 2020-12-04 17:34 | XR ---
EXAMINATION TYPE: XR chest 2V DATE OF EXAM: 12/04/2020 COMPARISON: 09/10/2020. HISTORY: Cough and fever. TECHNIQUE: Frontal and lateral views of the chest are obtained. FINDINGS: There is no focal air space opacity, pleural effusion, or pneumothorax seen. The cardiac silhouette size is within normal limits. The osseous structures are intact. IMPRESSION: No acute cardiopulmonary process.
[2020-12-04] MEDS ORDERED: BAMLANIVIMAB (EUA) 700 MG, ETESEVIMAB (EUA) 1,400 MG in SODIUM CHLORIDE 0.9% 50 ML IVPB ONE (19:00)
[2020-12-04] MEDS ORDERED: SODIUM CHLORIDE 0.9% 50 ML IVPB ONE (19:30)
[2020-12-04 20:22] VITALS: BP 146/84; PULSE 85; RESP 18; TEMP 98.9
== END 2020-12-04 20:22 | disposition home or self-care (01) ==
LOC: EC 15:16
DX: U07.1 COVID-19 (principal); I10 Essential (primary) hypertension; E11.9 Type 2 diabetes mellitus without complications; J45.909 Unspecified asthma, uncomplicated; F41.9 Anxiety disorder, unspecified; Z88.0 Allergy status to penicillin; Z79.4 Long term (current) use of insulin
CPT/HCPCS: 87635; 71046; 99285; 96365; Q0245

== ENCOUNTER → 2022-02-18 | Outpatient (CLI) | payer OTHER ==
--- NOTE | 2022-02-19 01:17 | MR ---
EXAMINATION TYPE: MR shoulder LT wo con DATE OF EXAM: 02/18/2022 COMPARISON: None HISTORY: Left shoulder pain and limited movement for 1 year Multiplanar multiecho imaging of the left shoulder with no contrast. The biceps tendon is intact. Glenoid tuan appear intact. Subscapularis tendon is intact. There is sm all amount of fluid on the posterior aspect of the subscapularis tendon. There is some spurring at th e AC joint. There is increased fluid signal along the inferior aspect of the supraspinatus muscle ext ending to the greater tuberosity of the humerus. I do not see a definite full-thickness defect in the supraspinatus tendon. The infraspinatus tendon is intact. There is mild spurring at the AC joint and minimal subacromial impingement. No evidence of a fracture. Humeral head is intact. No evidence of a ny significant shoulder joint effusion. IMPRESSION: There is some edema in the AC joint with hypertrophic mild osteoarthritis. Minimal subacromial imping ement. No evidence of full-thickness rotator cuff tear. There is some fluid and edema along the inferior supraspinatus muscle over the top of the humeral hea d and in the subacromial region. This could be some mild tendinitis. There is similar minimal fluid a long the subscapularis tendon.
== END | disposition home or self-care (01) ==
LOC: RADMRIMAIN 18:45
PROVIDERS: ATTEND Orthopaedic Surgery
DX: M19.012 Primary osteoarthritis, left shoulder (principal)

== ENCOUNTER → 2023-10-09 | Outpatient (CLI) | payer OTHER ==
--- NOTE | 2023-10-10 08:21 | XR ---
EXAMINATION TYPE: XR Hip Complete RT DATE OF EXAM: 10/09/2023 6:51 PM CLINICAL INDICATION:Female, 43 years old with history of M25.551 PAIN IN RIGHT HIP; [facility] COMPARISON: None. TECHNIQUE: XR Hip Complete RT; hip was examined in the frontal and lateral projections and a AP pelvi s. FINDINGS: No evidence for acute process, joint dislocation or significant soft tissue swelling. Minim al osteophyte formation of the sternum. IMPRESSION: 1. No acute process. 2. Minimal osteoarthrosis.
== END | disposition home or self-care (01) ==
LOC: RADXRMAIN 18:35
PROVIDERS: ATTEND Nurse Practitioner
DX: M16.11 Unilateral primary osteoarthritis, right hip (principal)
CPT/HCPCS: 73502

== ENCOUNTER 2024-11-02 18:56 | Emergency (ER) | payer OTHER ==
--- NOTE | 2024-11-02 19:49 | ED ---
URI HPI - General Chief Complaint: Upper Respiratory Infection Stated Complaint: Congestion,Nausea,Diarrhea Time Seen by Provider: 11/02/24 19:10 Source: patient, RN notes reviewed Mode of arrival: ambulatory Limitations: no limitations - History of Present Illness Initial Comments: 44-year-old female presents emergency department with chief plaint of fever chills cough congestion. Symptoms started over the last few days. Patient son tested positive for influenza. She has had mild diarrhea and ultimately nausea vomiting. Patient's been having on and off fevers. Patient denies any localized abdominal pain no other complaints. - Related Data Home Medications Medication Instructions Recorded Confirmed Shital Fe 1.5-30 1 tab PO DAILY 11/22/18 09/10/20 Cetirizine HCl [Zyrtec] 10 mg PO DAILY 04/20/20 09/10/20 INSULIN LISPRO (humaLOG) [humaLOG] 42 units SQ AC-TID 04/20/20 09/10/20 Insulin Glargine (Lantus) [Lantus] 80 unit SQ HS 04/20/20 09/10/20 Atorvastatin [Lipitor] 40 mg PO DAILY 09/10/20 09/10/20 Pantoprazole Sodium [Protonix] 40 mg PO DAILY 09/10/20 09/10/20 Previous Rx's Medication Instructions Recorded lisinopriL [Zestril] 5 mg PO DAILY #30 tab 10/06/19 Famotidine 20 mg PO HS #14 tab 09/10/20 Allergies Allergy/AdvReac Type Severity Reaction Status Date / Time azithromycin Allergy Unknown Verified 12/04/20 16:14 brompheniramine maleate Allergy Unknown Verified 12/04/20 16:14 [From Dimetapp Cold-Allergy (PE)] cephalexin [From Keflex] Allergy Unknown Verified 12/04/20 16:14 Penicillins Allergy Unknown Verified 12/04/20 16:14 phenylephrine HCl Allergy Unknown Verified 12/04/20 16:14 [From Dimetapp Cold-Allergy (PE)] sulfamethoxazole Allergy Unknown Verified 12/04/20 16:14 [From Septra] tetracycline Allergy Unknown Verified 12/04/20 16:14 theophylline anhydrous Allergy Unknown Verified 12/04/20 16:14 [From Wenceslao-Dur] trimethoprim [From Septra] Allergy Unknown Verified 12/04/20 16:14 Review of Systems ROS Statement: Those systems with pertinent positive or pertinent negative responses have been documented in the HPI. ROS Other: All systems not noted in ROS Statement are negative. Past Medical History Past Medical History: Asthma, Diabetes Mellitus, Hypertension Additional Past Medical History / Comment(s): IDDM type II History of Any Multi-Drug Resistant Organisms: None Reported Past Surgical History: Section Additional Past Surgical History / Comment(s): x 3 Past Anesthesia/Blood Transfusion Reactions: No Reported Reaction Past Psychological History: Anxiety Smoking Status: Never smoker Past Alcohol Use History: None Reported Past Drug Use History: None Reported - Past Family History Father History Unknown: Yes Additional Family Medical History / Comment(s): Patient does not know her father. Mother Family Medical History: Myocardial Infarction ([place]) Additional Family Medical History / Comment(s): Mother is alive at age 53. She had a [place] at the age of 52 yrs. History of Graves' disease, diabetes mellitus type 2, diabetic neuropathy, atrial fibrillation. Brother(s) Additional Family Medical History / Comment(s): Patient does not have any brothers or sisters. Patient has a daughter with catecholaminergic polymorphic ventricular tachycardia. General Exam Limitations: no limitations General appearance: alert, in no apparent distress Head exam: Present: atraumatic, normocephalic, normal inspection Eye exam: Present: normal appearance, PERRL, EOMI. Absent: scleral icterus, conjunctival injection, periorbital swelling ENT exam: Present: normal exam, normal oropharynx, mucous membranes moist Neck exam: Present: normal inspection, full ROM. Absent: tenderness, meningismus, lymphadenopathy Respiratory exam: Present: normal lung sounds bilaterally. Absent: respiratory distress, wheezes, rales, rhonchi, stridor Cardiovascular Exam: Present: regular rate, normal rhythm, normal heart sounds. Absent: systolic murmur, diastolic murmur, rubs, gallop, clicks GI/Abdominal exam: Present: soft, normal bowel sounds. Absent: distended, tenderness, guarding, rebound, rigid Course Vital Signs 11/02/24 19:13 Temperature 98.0 F Pulse Rate 82 Respiratory 18 Rate Blood Pressure 130/81 O2 Sat by Pulse 96 Oximetry Medical Decision Making - Medical Decision Making Was pt. sent in by a medical professional or institution (, PA, LIQUOR COMMISSIONER, urgent ca re, hospital, or alf...) When possible be specific @ -[No] Did you speak to anyone other than the patient for history (EMS, parent, family, police, friend...)? What history was obtained from this source @ -[No] Did you review nursing and triage notes (agree or disagree)? Why? @ -[I reviewed and agree with nursing and triage notes] Were old charts reviewed (outside hosp., previous admission, EMS record, old EKG, old radiological studies, urgent care reports/EKG's, alf records)? Report findings @ -[No old charts were reviewed] Differential Diagnosis (chest pain, altered mental status, abdominal pain women, abdominal pain men, vaginal bleeding, weakness, fever, dyspnea, syncope, headache, dizziness, GI bleed, back pain, seizure, CVA, palpatations, mental health, musculoskeletal)? @ -COVID 19, RSV, influenza, pneumonia, acute bronchitis, URI, this list is not all inclusive EKG interpreted by me (3pts min.). @ -None X-rays interpreted by me (1pt min.). @ -[None done] CT interpreted by me (1pt min.). @ -[None done] U/S interpreted by me (1pt. min.). @ -[None done] What testing was considered but not performed or refused? (CT, X-rays, U/S, labs)? Why? @ -[None] What meds were considered but not given or refused? Why? @ -[None] Did you discuss the management of the patient with other professionals (professionals i.e. , PA, LIQUOR COMMISSIONER, lab, RT, psych nurse, mental health social worker, wedding planning internship, teacher, deputy juvenile officer, high risk case manager)? Give summary @ -[No] Was smoking cessation discussed for >3mins.? @ -[No] Was critical care preformed (if so, how long)? @ -[No] Were there social determinants of health that impacted care today? How? (Homelessness, low income, unemployed, alcoholism, drug addiction, transportation, low edu. Level, literacy, decrease access to med. care, fci, rehab)? @ -[No] Was there de-escalation of care discussed even if they declined (Discuss DNR or withdrawal of care, Hospice)? DNR status @ -[No] What co-morbidities impacted this encounter? (DM, HTN, Smoking, COPD, CAD, Cancer, CVA, ARF, Chemo, Hep., AIDS, mental health diagnosis, sleep apnea, morbid obesity)? @ -[None] Was patient admitted / discharged? Hospital course, mention meds given and route, prescriptions, significant lab abnormalities, going to OR and other pertinent info. @Discharge patient is influenza A positive. Symptoms been present for 3 days. Undiagnosed new problem with uncertain prognosis? @ -[No] Drug Therapy requiring intensive monitoring for toxicity (Heparin, Nitro, Insulin, Cardizem)? @ -[No] Were any procedures done? @ -[No] Diagnosis/symptom? @ -Influenza A Acute, or Chronic, or Acute on Chronic? @ -Acute Uncomplicated (without systemic symptoms) or Complicated (systemic symptoms)? @ -Uncomplicated Side effects of treatment? @ -[No] Exacerbation, Progression, or Severe Exacerbation? @ -[No] Poses a threat to life or bodily function? How? (Chest pain, [place], [place], pneumonia, PE, COPD, DKA, ARF, appy, cholecystitis, CVA, Diverticulitis, Homicidal, Suicidal, threat to staff... and all critical care pts) @ -[No] - Lab Data Lab Results 11/02/24 Range/Units 19:41 Influenza Type A (PCR) Detected A (Not Detectd) Influenza Type B (PCR) Not Detected (Not Detectd) RSV (PCR) Not Detected (Not Detectd) SARS-CoV-2 (PCR) Not Detected (Not Detectd) Disposition Clinical Impression: Influenza A Disposition: HOME SELF-CARE Condition: Stable Instructions (If sedation given, give patient instructions): Influenza (ED) Additional Instructions: Please return to the Emergency Department if symptoms worsen or any other concerns. Is patient prescribed a controlled substance at d/c from ED?: No Referrals: Ayden Diaz MD [Primary Care Provider] - 1-2 days Time of Disposition: 20:42
[2024-11-02 20:35] LABS: Influenza A Detected (Not Detectd); Influenza B Not Detected (Not Detectd); RSV Not Detected (Not Detectd)
[2024-11-02 20:54] VITALS: BP 121/82; PULSE 86; RESP 20; TEMP 98.1
== END 2024-11-02 20:54 | disposition home or self-care (01) ==
LOC: EC 18:56
DX: J10.1 Influenza due to other identified influenza virus with other respiratory manifestations (principal); Z88.0 Allergy status to penicillin; Z88.1 Allergy status to other antibiotic agents; Z88.2 Allergy status to sulfonamides; Z88.7 Allergy status to serum and vaccine; Z88.8 Allergy status to other drugs, medicaments and biological substances
CPT/HCPCS: 87636; 99284

== ENCOUNTER → 2024-11-10 | Outpatient (CLI) | payer OTHER ==
--- NOTE | 2024-11-10 18:42 | XR ---
EXAMINATION TYPE: XR chest 2V DATE OF EXAM: 11/10/2024 4:21 PM COMPARISON: Chest radiographs from 12/04/2020 CLINICAL INDICATION: Female, 44 years old with history of M54.50, R05.9, M79.672; [facility] TECHNIQUE: XR chest 2V Frontal and lateral views of the chest. FINDINGS: Lungs/Pleura: There is no evidence of pleural effusion, focal consolidation, or pneumothorax. Pulmonary vascularity: Unremarkable. Heart/mediastinum: Cardiomediastinal silhouette is unremarkable. Musculoskeletal: No acute osseous pathology. Other findings: None IMPRESSION: No acute cardiopulmonary disease/process. [facility], , 11/10/2024 6:39 PM
--- NOTE | 2024-11-10 18:43 | XR ---
EXAMINATION TYPE: XR lumbar spine 2 or 3V DATE OF EXAM: 11/10/2024 4:21 PM COMPARISON: None CLINICAL INDICATION: Female, 44 years old with history of M54.50, R05.9, M79.672; [facility], pain TECHNIQUE: XR lumbar spine 2 or 3V - Frontal, lateral and coned in L5-S1 lateral views of the spine. FINDINGS: No evidence of any acute osseous pathology. No evidence of loss of vertebral body height i s seen. There is normal alignment of the lumbar vertebral bodies. Scattered disc space narrowing. Mul tilevel marginal osteophyte formation throughout the visualized spine. There is facet joint arthropat hy throughout the spine. Scattered at least mild neural foraminal stenosis. Atherosclerosis of the ar terial vascular. IMPRESSION: 1. No acute fracture. 2. Mild multilevel disc degeneration. [facility], , 11/10/2024 6:41 PM
--- NOTE | 2024-11-10 18:53 | XR ---
EXAMINATION TYPE: XR foot complete LT DATE OF EXAM: 11/10/2024 4:21 PM COMPARISON: 04/20/2020 CLINICAL INDICATION: Female, 44 years old with history of M54.50, R05.9, M79.672; [facility], pain TECHNIQUE: XR foot complete LT examined in the AP, oblique, and lateral projections. FINDINGS: The base of the fourth metatarsal is of lucent area extends into the cortex. This could be sequela pr ior fracture seen on 04/20/2020. There is remote healed fracture of the fifth metatarsal. Calcaneal pl osman spurring. No acute fractures. Mild degeneration changes with joint space narrowing and osteophy te formation throughout the foot. IMPRESSION: Abnormal appearance of the base of the fourth metatarsal with lucent area present possibly sequela pr ior fracture given evidence of fracture of the fifth metatarsal with healing changes from 04/20/[address] for further evaluation for osseous fusion. [facility], , 11/10/2024 6:51 PM
== END | disposition home or self-care (01) ==
LOC: RADXRMAIN 15:48
PROVIDERS: ATTEND Registered Nurse
DX: M51.360 Other intervertebral disc degeneration, lumbar region with discogenic back pain only (principal); M47.896 Other spondylosis, lumbar region; M99.71 Connective tissue and disc stenosis of intervertebral foramina of cervical region; M19.072 Primary osteoarthritis, left ankle and foot; R05.9 Cough, unspecified
CPT/HCPCS: 71046; 72100

== ENCOUNTER 2025-03-18 12:53 | Emergency (ER) | payer OTHER ==
[2025-03-18 12:58] VITALS: BP 146/92; PULSE 97; RESP 18; TEMP 98.1
--- NOTE | 2025-03-18 13:37 | ED ---
Skin/Abscess/FB HPI - General Chief complaint: Skin/Abscess/Foreign Body Stated complaint: Spider bite in right leg Time Seen by Provider: 03/18/25 13:33 Source: patient, family, RN notes reviewed Mode of arrival: wheelchair Limitations: no limitations - History of Present Illness Initial comments: 45-year-old female presented to ER for evaluation of right ankle wound. Patient reports at the end of December she was bitten by what she believes is a spider. She believes it was a brown recluse. Patient reports wound has progressively enlarged and worsened. She states it was draining purulent drainage but that has since subsided after being on Keflex 1 week ago prescribed at [facility]. Patient was evaluated at PCPs today and instructed to come to the emergency department for what patient states is wound debridement. Patient reports after taking Keflex she did have improvement of discomfort, drainage and redness to wound. Over the past 2 to 3 days she is had return of tenderness, erythema and blood-tinged drainage. She denies any fevers or chills. Patient does report pain with range of motion. Patient is an insulin-dependent type 2 diabetic. Denies history of MRSA. - Related Data Home Medications Medication Instructions Recorded Confirmed Cetirizine HCl [Zyrtec] 10 mg PO HS 04/20/20 03/18/25 INSULIN LISPRO (humaLOG) [humaLOG] 40 units SQ AC-TID MDD 120 units 04/20/20 03/18/25 Insulin Glargine (Lantus) [Lantus] 50 unit SQ BID 04/20/20 03/18/25 Atorvastatin [Lipitor] 40 mg PO HS 09/10/20 03/18/25 Pantoprazole Sodium [Protonix] 40 mg PO DAILY 09/10/20 03/18/25 Acetaminophen Tab [Tylenol] 1,000 mg PO TID 03/18/25 03/18/25 Albuterol Inhaler [Ventolin Hfa 2 puff INHALATION RT-Q4H PRN 03/18/25 03/18/25 Inhaler] Ascorbic Acid [Vitamin C] 500 mg PO DAILY 03/18/25 03/18/25 Cholecalciferol [Vitamin D3 (125 250 mcg PO DAILY 03/18/25 03/18/25 Mcg = 5000 Iu)] Cyclobenzaprine [Flexeril] 10 mg PO BID PRN 03/18/25 03/18/25 Ferrous Sulfate [Feosol] 325 mg PO MOWEFR 03/18/25 03/18/25 Fluticasone Nasal Lee [Flonase 2 spray EA NOSTRIL DAILY 03/18/25 03/18/25 Nasal Lee] Montelukast [Singulair] 10 mg PO HS 03/18/25 03/18/25 Naproxen [EC-Naprosyn] 500 mg PO TID PRN 03/18/25 03/18/25 Norethindrone [Lianet] 0.35 mg PO DAILY 03/18/25 03/18/25 Pnv 133-Ferrous Fumarate-Fa 1 tab PO DAILY 03/18/25 03/18/25 () 28-800 Mg/Mcg Zinc Gluconate [Zinc] 50 mg PO DAILY 03/18/25 03/18/25 sitaGLIPtin [Januvia] 100 mg PO DAILY 03/18/25 03/18/25 Previous Rx's Medication Instructions Recorded clindamycin HCL [Cleocin] 450 mg PO Q8HR 7 Days #63 cap 03/18/25 Allergies Allergy/AdvReac Type Severity Reaction Status Date / Time azithromycin Allergy Unknown Verified 03/18/25 13:58 brompheniramine maleate Allergy Unknown Verified 03/18/25 13:58 [From Dimetapp Cold-Allergy (PE)] cephalexin [From Keflex] Allergy Unknown Verified 03/18/25 13:58 Penicillins Allergy Unknown Verified 03/18/25 13:58 phenylephrine HCl Allergy Unknown Verified 03/18/25 13:58 [From Dimetapp Cold-Allergy (PE)] sulfamethoxazole Allergy Unknown Verified 03/18/25 13:58 [From Septra] tetracycline Allergy Unknown Verified 03/18/25 13:58 theophylline anhydrous Allergy Unknown Verified 03/18/25 13:58 [From Wenceslao-Dur] trimethoprim [From Septra] Allergy Unknown Verified 03/18/25 13:58 Review of Systems ROS Statement: Those systems with pertinent positive or pertinent negative responses have been documented in the HPI. ROS Other: All systems not noted in ROS Statement are negative. Past Medical History Past Medical History: Asthma, Diabetes Mellitus, Hypertension Additional Past Medical History / Comment(s): IDDM type II History of Any Multi-Drug Resistant Organisms: None Reported Past Surgical History: Section Additional Past Surgical History / Comment(s): x 3 Past Anesthesia/Blood Transfusion Reactions: No Reported Reaction Past Psychological History: Anxiety Smoking Status: Never smoker Past Alcohol Use History: None Reported Past Drug Use History: None Reported - Past Family History Father History Unknown: Yes Additional Family Medical History / Comment(s): Patient does not know her father. Mother Family Medical History: Myocardial Infarction (MN) Additional Family Medical History / Comment(s): Mother is alive at age 53. She had a MN at the age of 52 yrs. History of Graves' disease, diabetes mellitus ty pe 2, diabetic neuropathy, atrial fibrillation. Brother(s) Additional Family Medical History / Comment(s): Patient does not have any brothers or sisters. Patient has a daughter with catecholaminergic polymorphic ventricular tachycardia. General Exam Limitations: no limitations General appearance: alert, in no apparent distress Respiratory exam: Present: normal lung sounds bilaterally. Absent: respiratory distress, wheezes, rales, rhonchi, stridor Cardiovascular Exam: Present: regular rate, normal rhythm, normal heart sounds. Absent: systolic murmur, diastolic murmur, rubs, gallop, clicks Extremities exam: Present: normal inspection, full ROM, normal capillary refill (2+ right DP pulse). Absent: tenderness, pedal edema, joint swelling, calf tenderness Neurological exam: Present: alert, oriented X3, CN II-XII intact Skin exam: Present: warm, dry, intact, normal color, other (3 x 2 mm wound overlying right lateral malleolus. Slough tissue present with spot of black discoloration. There is a wound more posterior measuring 2 x 1.5 mm. There is serosanguineous drainage and surrounding erythema extending into foot and proximally) Course Vital Signs 03/18/25 12:55 Temperature 98.1 F Pulse Rate 97 Respiratory 18 Rate Blood Pressure 146/92 O2 Sat by Pulse 97 Oximetry Medical Decision Making - Medical Decision Making Was pt. sent in by a medical professional or institution (, PA, BUILDING CARPENTER, urgent care, hospital, or correction...) When possible be specific @ -Patient sent by PCP for evaluation of ankle wound. Did you speak to anyone other than the patient for history (EMS, parent, family, police, friend...)? What history was obtained from this source @ -No Did you review nursing and triage notes (agree or disagree)? Why? @ -I reviewed and agree with nursing and triage notes Were old charts reviewed (outside hosp., previous admission, EMS record, old EKG, old radiological studies, urgent care reports/EKG's, correction records)? Report findings @ -No old charts were reviewed Differential Diagnosis (chest pain, altered mental status, abdominal pain women, abdominal pain men, vaginal bleeding, weakness, fever, dyspnea, syncope, headache, dizziness, GI bleed, back pain, seizure, CVA, palpatations, mental health, musculoskeletal)? @ -Cellulitis, osteomyelitis, sepsis, chronic wound... This list is not meant to be all-inclusive EKG interpreted by me (3pts min.). @ -None done X-rays interpreted by me (1pt min.). @ -Right ankle x-ray interpreted by me remarkable for soft tissue swelling and wound noted to lateral malleolus. No evidence of osseous erosion or radiopaque foreign bodies. No acute fractures CT interpreted by me (1pt min.). @ -None done U/S interpreted by me (1pt. min.). @ -None done What testing was considered but not performed or refused? (CT, X-rays, U/S, labs)? Why? @ -Wound cultures considered however patient reports these were completed at PCPs office just prior to arrival. She states her insurance will not cover two wound cultures What meds were considered but not given or refused? Why? @ -None Did you discuss the management of the patient with other professionals (professionals i.e. , PA, BUILDING CARPENTER, lab, RT, psych nurse, delinquency prevention social worker, clarifier operator helper, teacher, supervisory cbp officer, caser shoe parts)? Give summary @ -No Was smoking cessation discussed for >3mins.? @ -No Was critical care preformed (if so, how long)? @ -No Were there social determinants of health that impacted care today? How? (Homelessness, low income, unemployed, alcoholism, drug addiction, transport ation, low edu. Level, literacy, decrease access to med. care, shelter, rehab)? @ -No Was there de-escalation of care discussed even if they declined (Discuss DNR or withdrawal of care, Hospice)? DNR status @ -No What co-morbidities impacted this encounter? (DM, HTN, Smoking, COPD, CAD, Cancer, CVA, ARF, Chemo, Hep., AIDS, mental health diagnosis, sleep apnea, morbid obesity)? @ -Diabetes mellitus, Asthma, hypertension Was patient admitted / discharged? Hospital course, mention meds given and route, prescriptions, significant lab abnormalities, going to OR and other pert nent info. @ -AMA. 45-year-old female presented the ER for evaluation of right ankle wound. Patient sent by PCP. Upon arrival vital stable. Patient was in acute distress nontoxic-appearing. Examination of right ankle remarkable for 2 wounds with surrounding erythema, edema and warmth concerning of infection. Patient is neurovascularly intact. Laboratory studies obtained remarkable for WBC 7.59, lactic 1.7. Hyperglycemia 309 for which patient received IV fluids and 30 units of subcutaneous insulin prior to discharge. Right ankle x-ray negative for acute fractures, radiopaque foreign bodies or osteolytic changes. Soft tissue edema noted. Patient provided with symptomatic control with IV Toradol. Tetanus updated. Blood cultures obtained and patient provided IV clindamycin. Wound cultures considered however patient states these were completed at PCPs office. She is refusing repeat cultures as she states her insurance will not cover another set. Given patient's comorbidities with a nonhealing wound without improvement after oral antibiotics admission was recommended to patient for IV antibiotic treatment of wounds. Patient adamantly refused stating due to family circumstances she must go home. I did explain to patient she will be leaving AGAINST MEDICAL ADVICE and the risk of doing so including but not limited to . She verbally expressed understanding of these risks. She displayed Medical Decision Making capabilities. Clindamycin prescribed. I strongly recommend patient follow-up with PCP in the next 2 to 3 days for reevaluation she was agreeable to this. Case discussed with ED attending, Dr. Carpio. Undiagnosed new problem with uncertain prognosis? @ -No Drug Therapy requiring intensive monitoring for toxicity (Heparin, Nitro, Insulin, Cardizem)? @ -No Were any procedures done? @ -No Diagnosis/symptom? @ -AMA/Cellulitis/wound infection Acute, or Chronic, or Acute on Chronic? @ -Acute Uncomplicated (without systemic symptoms) or Complicated (systemic symptoms)? @ -Uncomplicated Side effects of treatment? @ -No Exacerbation, Progression, or Severe Exacerbation? @ -No Poses a threat to life or bodily function? How? (Chest pain, USA, MN, pneumonia, PE, COPD, DKA, ARF, appy, cholecystitis, CVA, Diverticulitis, Homicidal, Suicidal, threat to staff... and all critical care pts) @ -Possibly - Lab Data Result diagrams: 03/18/25 13:49 03/18/25 13:49 Lab Results 03/18/25 03/18/25 03/18/25 Range/Units 13:49 13:49 13:49 WBC 7.59 (4.50-10.00) 10*3/uL RBC 5.33 H (4.10-5.20) 10*6/uL Hgb 14.3 (12.0-15.0) g/dL Hct 42.1 (37.2-46.3) % MCV 79.0 L (80.0-97.0) fL MCH 26.8 L (27.0-32.0) pg MCHC 34.0 (32.0-37.0) g/dL Plt Count 203 (140-440) 10*3/uL MPV 10.1 (9.5-12.2) fL Immature Gran % (Auto) 0.4 % Neutrophils % 65.8 % Lymphocytes % 23.5 % Monocytes % 5.8 % Eosinophils % 3.6 % Basophils % 0.9 % Immature Gran # 0.03 (0.00-0.04) 10*3/uL Neutrophils # 5.00 (1.80-7.70) 10*3/uL Lymphocytes # 1.78 (0.90-5.00) 10*3/uL Monocytes # 0.44 (0.20-1.00) 10*3/uL Eosinophils # 0.27 (0.04-0.35) 10*3/uL Basophils # 0.07 (0.00-0.10) 10*3/uL Sodium 137 (137-145) mmol/L Potassium 4.7 (3.5-5.1) mmol/L Chloride 100 (98-107) mmol/L Carbon Dioxide 27 (22-30) mmol/L Anion Gap 10 mmol/L BUN 15 (7-17) mg/dL Creatinine 0.54 (0.52-1.04) mg/dL Est GFR (CKD-EPI)AfAm >90 (>60 ml/min/1.73 sqM) Est GFR (CKD-EPI)NonAf >90 (>60 ml/min/1.73 sqM) Glucose 309 H (74-99) mg/dL POC Glucose (mg/dL) (70-110) mg/dL POC Glu Systems Program Manager ID Plasma Lactic Acid Ravi 1.7 (0.7-2.0) mmol/L Calcium 9.5 (8.4-10.2) mg/dL Total Bilirubin 0.5 (0.2-1.3) mg/dL AST 28 (14-36) U/L ALT 26 (4-34) U/L Alkaline Phosphatase 161 H (38-126) U/L Total Protein 7.3 (6.3-8.2) g/dL Albumin 3.9 (3.5-5.0) g/dL / Range/Units 16:29 WBC (4.50-10.00) 10*3/uL RBC (4.10-5.20) 10*6/uL Hgb (12.0-15.0) g/dL Hct (37.2-46.3) % MCV (80.0-97.0) fL MCH (27.0-32.0) pg MCHC (32.0-37.0) g/dL Plt Count (140-440) 10*3/uL MPV (9.5-12.2) fL Immature Gran % (Auto) % Neutrophils % % Lymphocytes % % Monocytes % % Eosinophils % % Basophils % % Immature Gran # (0.00-0.04) 10*3/uL Neutrophils # (1.80-7.70) 10*3/uL Lymphocytes # (0.90-5.00) 10*3/uL Monocytes # (0.20-1.00) 10*3/uL Eosinophils # (0.04-0.35) 10*3/uL Basophils # (0.00-0.10) 10*3/uL Sodium (137-145) mmol/L Potassium (3.5-5.1) mmol/L Chloride (98-107) mmol/L Carbon Dioxide (22-30) mmol/L Anion Gap mmol/L BUN (7-17) mg/dL Creatinine (0.52-1.04) mg/dL Est GFR (CKD-EPI)AfAm (>60 ml/min/1.73 sqM) Est GFR (CKD-EPI)NonAf (>60 ml/min/1.73 sqM) Glucose (74-99) mg/dL POC Glucose (mg/dL) 323 H (70-110) mg/dL POC Glu Systems Program Manager ID Cline Dante Plasma Lactic Acid Ravi (0.7-2.0) mmol/L Calcium (8.4-10.2) mg/dL Total Bilirubin (0.2-1.3) mg/dL AST (14-36) U/L ALT (4-34) U/L Alkaline Phosphatase (38-126) U/L Total Protein (6.3-8.2) g/dL Albumin (3.5-5.0) g/dL - Radiology Data Radiology results: report reviewed, image reviewed Disposition Clinical Impression: Cellulitis, Wound infection Disposition: LEFT AGAINST MEDICAL ADVICE Condition: Stable Prescriptions: clindamycin HCL [Cleocin] 450 mg PO Q8HR 7 Days #63 cap Referrals: Ayden Diaz MD [Primary Care Provider] - 1-2 days [facility] [NON-STAFF] - 1-2 days Time of Disposition: 14:49
[2025-03-18] MEDS: KETOROLAC 15 MG/ML 1 ML VIAL IVP STA (14:00)
[2025-03-18] MEDS: SODIUM CHLORIDE 0.9% 1,000 ML IV ONE (14:00)
[2025-03-18 14:02] LABS: Basophils # (A) 0.07 10*3/uL (0.00-0.10); Basophils % (A) 0.9 %; Eosinophils # (A) 0.27 10*3/uL (0.04-0.35); Eosinophils % (A) 3.6 %; HCT 42.1 % (37.2-46.3); HGB 14.3 g/dL (12.0-15.0); Lymphocytes # (A) 1.78 10*3/uL (0.90-5.00); Lymphocytes % (A) 23.5 %; MCH 26.8 pg (27.0-32.0); MCHC 34.0 g/dL (32.0-37.0); MCV 79.0 fL (80.0-97.0); Monocytes # (A) 0.44 10*3/uL (0.20-1.00); Monocytes % (A) 5.8 %; Neutrophils # (A) 5.00 10*3/uL (1.80-7.70); Neutrophils % (A) 65.8 %; Platelet Count 203 10*3/uL (140-440); RBC 5.33 10*6/uL (4.10-5.20); RDW 14.2 % (11.5-14.5); WBC 7.59 10*3/uL (4.50-10.00)
[2025-03-18] MEDS: CLINDAMYCIN 600 MG in DEXTROSE 5% IN WATER 50 ML IVPB STA (14:02)
[2025-03-18] MEDS: DIPH,PERTUS(ACELL)TETVAC-LF 0.5 ML VIAL IM ONE (14:03)
[2025-03-18 14:18] LABS: ALT 26 U/L (4-34); AST 28 U/L (14-36); African American GFR (CKD) >90 (>60 ml/min/1.73 sqM); Albumin 3.9 g/dL (3.5-5.0); Alkaline Phosphatase 161 U/L (38-126); Anion Gap 10 mmol/L; Blood Urea Nitrogen 15 mg/dL (7-17); Calcium 9.5 mg/dL (8.4-10.2); Carbon Dioxide 27 mmol/L (22-30); Chloride 100 mmol/L (98-107); Glucose 309 mg/dL (74-99); Non-African American GFR(CKD) >90 (>60 ml/min/1.73 sqM); Potassium 4.7 mmol/L (3.5-5.1); Sodium 137 mmol/L (137-145); Total Protein 7.3 g/dL (6.3-8.2)
--- NOTE | 2025-03-18 14:32 | XR ---
EXAMINATION TYPE: XR ankle complete RT DATE OF EXAM: 03/18/2025 2:22 PM COMPARISON: None CLINICAL INDICATION: Female, 45 years old with history of lateral mallelous wuond; PHH, pain TECHNIQUE: XR ankle complete RT; frontal, lateral and oblique projections. FINDINGS: There is no evidence of acute osseous pathology. No evidence of subluxation or dislocation. Kager's fat pad is intact. Mild soft tissue swelling around the ankle particularly the lateral aspect with sk in defect no radiopaque foreign bodies. No evidence for osseous erosion. Calcaneal plantar spurring i s present. IMPRESSION: 1. Soft tissue swelling running off evidence for osseous erosion. No radiopaque foreign bodies. 2. No evidence for acute fracture. 3. Calcaneal plantar spurring. [facility], , 03/18/2025 2:30 PM
[2025-03-18 16:31] LABS: Glucose,Whole Blood 323 mg/dL (70-110)
[2025-03-18] MEDS: INSULIN LISPRO (HumaLOG) 100 UNIT/ML 10 mL VL SQ STA ×2 (16:47→16:51)
== END 2025-03-18 17:24 | disposition left against medical advice (07) ==
LOC: EC 12:53
DX: L03.116 Cellulitis of left lower limb (principal); T84.59XA Infection and inflammatory reaction due to other internal joint prosthesis, initial encounter; Z53.29 Procedure and treatment not carried out because of patient's decision for other reasons; Z23 Encounter for immunization; Z88.0 Allergy status to penicillin; Z88.1 Allergy status to other antibiotic agents; Z88.2 Allergy status to sulfonamides; Z88.8 Allergy status to other drugs, medicaments and biological substances
CPT/HCPCS: 36415; 80053; 83605; 85025; 87040; 73610; 90715; 99283; 96365; 96366; 96375; 90471; J1885; J0736